=== PATIENT | female | born 1950 | race Caucasian/White ===

== ENCOUNTER → 2017-03-07 | Outpatient (CLI) | payer MEDICARE, OTHER ==
--- NOTE | 2017-03-08 07:52 | BD ---
EXAMINATION TYPE: MG DEXA axial skeleton. DATE OF EXAM: 03/07/2017 4:44 PM COMPARISON: DEXA bone scan November 10, 2012. CLINICAL HISTORY: Postmenopausal female Height: 67 Weight: 149.5 FRAX RISK QUESTIONS: Alcohol (3 or more units per day): no Family History (Parent hip fracture): no Glucocorticoids (More than 3mos): no (Ex: prednisone, prednisolone, methylprednisolone, dexamethasone, and hydrocortisone). History of Fracture in Adulthood: yes Secondary Osteoporosis: 1. Type 1 Diabetes: no 2. Hyperthyroidism: no 3. Menopause before 45: no 4. Malnutrition: no 5. Chronic liver disease: no Rheumatoid Arthritis: no Current Tobacco Use: no RISK FACTORS HISTORY OF: Hip Fracture (Right/Left): no Spine Fracture: no History of Wrist Fracture: no Surgery to Spine/Hip(right/left)/Wrist (right/left): no Family History of Osteoporosis: yes Active: yes Diet low in dairy products/other sources of calcium: no Postmenopausal woman: Lost more than 2 inches in height since high school: no Frequent falls: no Poor Health: no Adrenal Insufficiency: no MEDICATIONS: Zestril EXAM MEASUREMENTS: Bone mineral densitometry was performed using the [employer] System. Bone mineral density as measured about the Lumbar spine is: ----- L1-L4(G/cm2): 1.100 T Score Values are as follows: ----- L2: -1.4 ----- L3: -0.4 ----- L4: 0.2 ----- L1-L4: -0.7 Bone mineral density has: increased 0.5 % since study of: 11.10.2012 Bone mineral density about the R hip (g/cm2): 0.927 Bone mineral density about the L hip (g/cm2): 0.845 T Score values are as follows: -----R Neck: -0.8 -----L Neck: -1.4 -----R Intertrochanter: -0.6 -----L Intertrochanter: -1.0 Bone mineral density has: decreased-0.8 % since study of: 11.10.2012 IMPRESSION: Osteopenia (T Score between -2.5 and -1 as noted by T score values remains present in the low back co nsecutive levels and in the left hip. Bone density fairly stable from prior study. There is slightly increased risk of fracture and the patient may be considered for treatment. Re-Screen 1-2 years. NOTE: T-SCORE=SD OF THE YOUNG ADULT MEAN.
== END | disposition home or self-care (01) ==
LOC: RADBDWWP 16:25
PROVIDERS: ATTEND Obstetrics & Gynecology
DX: M85.852 Other specified disorders of bone density and structure, left thigh (principal); M85.88 Other specified disorders of bone density and structure, other site
CPT/HCPCS: 77080

== ENCOUNTER 2017-05-28 07:20 | Day surgery (SDC) | payer MEDICARE, OTHER ==
[2017-05-23 11:05] VITALS: BMI 23.1
[~2017-05-28 07:20] MED LIST: LACTATED RINGERS 1,000 ML IV SCH
[2017-05-28 07:34] VITALS: RESP 18; TEMP 97.8
[2017-05-28] MEDS ORDERED: LIDOCAINE 1% 20 ML VIAL (10MG/ML) FOR IV START INTRADERMA ONE (07:34)
[2017-05-28] MEDS ORDERED: PROPOFOL 10 MG/ML 20 ML VIAL IV ONE (08:29)
[2017-05-28] MEDS ORDERED: LIDOCAINE 1% INJ 10MG/ML (20 ML MDV) ONE (08:29)
--- NOTE | 2017-05-28 08:43 | P.OP ---
Date of Procedure: 05/28/17 Preoperative Diagnosis: Red blood per rectum Postoperative Diagnosis: Internal hemorrhoids, tortuous redundant sigmoid colon Procedure(s) Performed: Colonoscopy Implants: Anesthesia: MAC Surgeon: Crystal Swenson Estimated Blood Loss (ml): 0 IV fluids (ml): 550 Pathology: none sent Condition: stable Disposition: PACU Indications for Procedure: Red blood per rectum Operative Findings: Tortuous redundant sigmoid colon, internal hemorrhoids Description of Procedure: Patient was taken to the endoscopy suite and following sedation rectal exam was performed patient was noted to have adequate sphincter tone no masses. Colonoscope was passed through the anus into the rectum. Was passed up into the sigmoid colon which was very tortuous and redundant. Was passed to the splenic flexure transverse colon hepatic flexure right colon down to the area of the cecum. Circumferential observation of the mucosa did not reveal any lesions of concern in the cecum or right colon. No lesions of concern were noted in the transverse colon. No lesions of concern in the left colon or sigmoid colon. As the scope was brought down to the rectum it was retroflexed and internal hemorrhoids were identified. This appeared to be engorged and friable. No other lesions of concern identified. Approximately 6 minutes were taken to withdraw the scope from the cecum to the rectum. Impression/plan: 1. Tortuous redundant sigmoid colon 2. Internal hemorrhoids Plan: 1. Conservative management 2. Repeat scope 7-10 years
--- NOTE | 2017-05-28 08:44 | P.DS ---
Providers Attending physician: Crystal Swenson Primary care physician: Gavino Finney Plan - Discharge Summary New Discharge Prescriptions: No Action Aspirin EC [Ecotrin Low Dose] 81 mg PO DAILY Zinc 50 mg PO DAILY Cummings-3 Fatty Acids/Fish Oil [Fish Oil 1,000 mg Softgel] 1 each PO DAILY Multivitamins, Thera [Multivitamin (formulary)] 1 each PO DAILY Lutein 10 mg PO DAILY Lisinopril [Zestril] 5 mg PO DAILY Calcium Carbonate [Calcium] 1,200 mg PO DAILY Discharge Medication List Aspirin EC [Ecotrin Low Dose] 81 mg PO DAILY 05/23/17 [History] Calcium Carbonate [Calcium] 1,200 mg PO DAILY 05/23/17 [History] Lisinopril [Zestril] 5 mg PO DAILY 05/23/17 [History] Lutein 10 mg PO DAILY 05/23/17 [History] Multivitamins, Thera [Multivitamin (formulary)] 1 each PO DAILY 05/23/17 [ History] Cummings-3 Fatty Acids/Fish Oil [Fish Oil 1,000 mg Softgel] 1 each PO DAILY [History] Zinc 50 mg PO DAILY 05/23/17 [History] Follow up Appointment(s)/Referral(s): Crystal Swenson MD [STAFF PHYSICIAN] - As Needed Discharge Disposition: HOME SELF-CARE
[2017-05-28 09:08] VITALS: BP 133/87; PULSE 65
== END 2017-05-28 09:31 | disposition home or self-care (01) ==
LOC: ORWHC2ENDO 07:20
PROVIDERS: ATTEND Surgery
DX: K63.89 Other specified diseases of intestine (principal); K64.8 Other hemorrhoids; Z79.899 Other long term (current) drug therapy
CPT/HCPCS: 45378; J2001; J2704

== ENCOUNTER 2017-08-13 14:41 | Emergency (ER) | payer MEDICARE, OTHER ==
[2017-08-13 15:36] LABS: Basophils % (A) 0 %; CH 30.6; CHCM 33.9; Eosinophils # (A) 0.1 k/uL (0-0.7); Eosinophils % (A) 3 %; HCT 38.6 % (34.0-46.0); HDW 2.47; HGB 13.2 gm/dL (11.4-16.0); Luc # (Auto) 0.09; Luc % (Auto) 3; Lymphocytes # (A) 1.2 k/uL (1.0-4.8); Lymphocytes % (A) 32 %; MCH 30.9 pg (25.0-35.0); MCHC 34.1 g/dL (31.0-37.0); MCV 90.6 fL (80.0-100.0); Mean Platelet Volume 6.8; Monocytes # (A) 0.2 k/uL (0-1.0); Monocytes % (A) 5 %; Neutrophils # (A) 2.1 k/uL (1.3-7.7); Neutrophils % (A) 57 %; RBC 4.26 m/uL (3.80-5.40); RDW 12.2 % (11.5-15.5); WBC 3.7 k/uL (3.8-10.6); WBC (Perox) 3.79
[2017-08-13 15:47] LABS: Amylase <30 U/L (30-110)
--- NOTE | 2017-08-13 15:47 | XR ---
EXAMINATION TYPE: XR KUB DATE OF EXAM: 08/13/2017 3:42 PM CLINICAL HISTORY: Right-sided abdominal pain and blood in stool. TECHNIQUE: Two Upright KUB images of the abdomen are obtained. COMPARISON: None. FINDINGS: Scattered gas is seen in non-distended stomach and small bowel loops. Gas and fecal materia l is seen in non-distended colon. Cholecystectomy clips are present. Heart size is enlarged. Lung bas es are clear. No pneumoperitoneum is seen. No suspicious calcifications are noted. There is moderate joint space loss in both hips. There is mild to moderate spurring in the visualized spine. IMPRESSION: Overall nonobstructive bowel gas pattern.
[2017-08-13 15:48] LABS: ALT 23 U/L (9-52); AST 25 U/L (14-36); Alkaline Phosphatase 73 U/L (38-126); Anion Gap 9 mmol/L; Blood Urea Nitrogen 26 mg/dL (7-17); Calcium 9.3 mg/dL (8.4-10.2); Carbon Dioxide 24 mmol/L (22-30); Chloride 107 mmol/L (98-107); Glucose 103 mg/dL (74-99); Non-African American GFR(MDRD) >60 (>60 ml/min/1.73 sqM); Potassium 4.1 mmol/L (3.5-5.1); Sodium 140 mmol/L (137-145); Total Bilirubin 0.3 mg/dL (0.2-1.3); Total Protein 6.6 g/dL (6.3-8.2)
[2017-08-13 15:52] LABS: Appearance,Urine Clear (Clear); Bilirubin,Urine Negative (Negative); Glucose,Urine (UA) Negative (Negative); Ketones,Urine Negative (Negative); Leukocyte Esterase,Urine Negative (Negative); Nitrite,Urine Negative (Negative); Protein,Urine Negative (Negative); Specific Gravity,Urine 1.014 (1.001-1.035); UA Billing (MACRO vs. MICRO) CHEM; Urobilinogen,Urine <2.0 mg/dL (<2.0)
--- NOTE | 2017-08-13 16:02 | ED ---
General Adult HPI - General Chief complaint: Abdominal Pain Stated complaint: rt abdominal and flank pain Time Seen by Provider: 08/13/17 14:53 Source: patient Mode of arrival: ambulatory Limitations: no limitations - History of Present Illness Initial comments: This is a 67-year-old female who presents to emergency department today with chief complaint of abdominal pain. Prior to arrival, patient reports an hour- long episode of constant, sharp right lower quadrant abdominal pain with radiation to right flank. She states that over the course of the hour the pain increased in severity. Patient reports a history of bladder prolapse which she states has been more prominent today than usual. She initially believed the pain was related to this however, the pain did not decrease when she manually put bladder back in place. She called her son who transported her to the emergency department. Upon taking history and physical exam patient is no longer in pain and feels well. Denies fever, chills, chest pain, shortness of breath, nausea, vomiting, dysuria, hematuria, numbess, tingling, headache or vision changes. - Related Data Home Medications Medication Instructions Recorded Confirmed Aspirin EC [Ecotrin Low Dose] 81 mg PO DAILY 05/23/17 08/13/17 Calcium Carbonate [Calcium] 1,200 mg PO DAILY 05/23/17 08/13/17 Lisinopril [Zestril] 5 mg PO DAILY 05/23/17 08/13/17 Lutein 10 mg PO DAILY 05/23/17 08/13/17 Multivitamins, Thera [Multivitamin 1 tab PO DAILY 05/23/17 08/13/17 (formulary)] Chardon-3 Fatty Acids/Fish Oil [Fish 1 cap PO DAILY 05/23/17 08/13/17 Oil 1,000 mg Softgel] Zinc 50 mg PO DAILY 05/23/17 08/13/17 Allergies Allergy/AdvReac Type Severity Reaction Status Date / Time No Known Allergies Allergy Verified 08/13/17 15:14 Review of Systems ROS Statement: Those systems with pertinent positive or pertinent negative responses have been documented in the HPI. ROS Other: All systems not noted in ROS Statement are negative. Past Medical History Past Medical History: Hypertension Additional Past Medical History / Comment(s): recent episodes of blood in stool History of Any Multi-Drug Resistant Organisms: None Reported Past Surgical History: Cholecystectomy, Hernia Repair, Orthopedic Surgery, Tonsillectomy Additional Past Surgical History / Comment(s): SINUS. RT KNEE SCOPE. COLONOSCOPY Past Anesthesia/Blood Transfusion Reactions: No Reported Reaction Past Psychological History: No Psychological Hx Reported Smoking Status: Never smoker Past Alcohol Use History: None Reported Past Drug Use History: None Reported - Past Family History Mother Family Medical History: Cancer General Exam - General Exam Comments Initial Comments: General: Awake and alert, well-developed; in no apparent distress. Patient's son is at bedside. HEENT: Head atraumatic, normocephalic. Pupils are equal, round and reactive to light. Extraocular movements intact. Neck: Supple. Normal ROM. Trachea midline. Cardiovascular: Regular rate and rhythm. No murmurs, rubs or gallops. Chest symmetrical. Respiratory: Lungs clear to auscultation bilaterally. No wheezes, rales or rhonchi. Normal respiratory efffort with no use of accessory muscles. Abdomen: Soft, non-tender, non-distended. No rigidity, rebound or guarding. Normal bowel sounds in all 4 quadrants. No CVA tenderness. Musculoskeletal: Normal ROM, no tenderness, no pedal edema. Pulses 2+ equal and palpable bilaterally. Skin: Brenda, warm and dry without rashes or lesions. Neurological: Alert and oriented x3. CN II-XII grossly intact. Speech is fluent and answers are appropriate. No focal neuro deficits. Psychiatric: Normal mood and affect. No overt signs of depression or anxiety noted. Limitations: no limitations Course Vital Signs 08/13/17 14:51 Temperature 97.5 F L Pulse Rate 85 Respiratory 16 Rate Blood Pressure 136/90 O2 Sat by Pulse 99 Oximetry Medical Decision Making - Medical Decision Making Patient is doing well at this time is in no apparent distress. This case was reviewed with attending physician, Dr. Jacobson. Initial studies were all unremarkable. KUB showed no acute abnormalities. Patient will be discharged home with recommendation to follow up with primary care provider and return to ED if symptoms worsen or any concerns arise. - Lab Data Result diagrams: 08/13/17 15:21 08/13/17 15:21 Lab Results 08/13/17 08/13/17 08/13/17 Range/Units 15:21 15:21 15:21 WBC 3.7 L (3.8-10.6) k/uL RBC 4.26 (3.80-5.40) m/uL Hgb 13.2 (11.4-16.0) gm/dL Hct 38.6 (34.0-46.0) % MCV 90.6 (80.0-100.0) fL MCH 30.9 (25.0-35.0) pg MCHC 34.1 (31.0-37.0) g/dL RDW 12.2 (11.5-15.5) % Plt Count 244 (150-450) k/uL Neutrophils % 57 % Lymphocytes % 32 % Monocytes % 5 % Eosinophils % 3 % Basophils % 0 % Neutrophils # 2.1 (1.3-7.7) k/uL Lymphocytes # 1.2 (1.0-4.8) k/uL Monocytes # 0.2 (0-1.0) k/uL Eosinophils # 0.1 (0-0.7) k/uL Basophils # 0.0 (0-0.2) k/uL Sodium 140 (137-145) mmol/L Potassium 4.1 (3.5-5.1) mmol/L Chloride 107 (98-107) mmol/L Carbon Dioxide 24 (22-30) mmol/L Anion Gap 9 mmol/L BUN 26 H (7-17) mg/dL Creatinine 0.75 (0.52-1.04) mg/dL Est GFR (MDRD) Af Amer >60 (>60 ml/min/1.73 sqM) Est GFR (MDRD) Non-Af >60 (>60 ml/min/1.73 sqM) Glucose 103 H (74-99) mg/dL Calcium 9.3 (8.4-10.2) mg/dL Total Bilirubin 0.3 (0.2-1.3) mg/dL AST 25 (14-36) U/L ALT 23 (9-52) U/L Alkaline Phosphatase 73 (38-126) U/L Total Protein 6.6 (6.3-8.2) g/dL Albumin 4.0 (3.5-5.0) g/dL Amylase <30 L (30-110) U/L Lipase 141 (23-300) U/L Urine Color Urine Appearance (Clear) Urine pH (5.0-8.0) Ur Specific Isle (1.001-1.035) Urine Protein (Negative) Urine Glucose (UA) (Negative) Urine Ketones (Negative) Urine Blood (Negative) Urine Nitrite (Negative) Urine Bilirubin (Negative) Urine Urobilinogen (<2.0) mg/dL Ur Leukocyte Esterase (Negative) 08/13/17 Range/Units 15:34 WBC (3.8-10.6) k/uL RBC (3.80-5.40) m/uL Hgb (11.4-16.0) gm/dL Hct (34.0-46.0) % MCV (80.0-100.0) fL MCH (25.0-35.0) pg MCHC (31.0-37.0) g/dL RDW (11.5-15.5) % Plt Count (150-450) k/uL Neutrophils % % Lymphocytes % % Monocytes % % Eosinophils % % Basophils % % Neutrophils # (1.3-7.7) k/uL Lymphocytes # (1.0-4.8) k/uL Monocytes # (0-1.0) k/uL Eosinophils # (0-0.7) k/uL Basophils # (0-0.2) k/uL Sodium (137-145) mmol/L Potassium (3.5-5.1) mmol/L Chloride (98-107) mmol/L Carbon Dioxide (22-30) mmol/L Anion Gap mmol/L BUN (7-17) mg/dL Creatinine (0.52-1.04) mg/dL Est GFR (MDRD) Af Amer (>60 ml/min/1.73 sqM) Est GFR (MDRD) Non-Af (>60 ml/min/1.73 sqM) Glucose (74-99) mg/dL Calcium (8.4-10.2) mg/dL Total Bilirubin (0.2-1.3) mg/dL AST (14-36) U/L ALT (9-52) U/L Alkaline Phosphatase (38-126) U/L Total Protein (6.3-8.2) g/dL Albumin (3.5-5.0) g/dL Amylase (30-110) U/L Lipase (23-300) U/L Urine Color Light Yellow Urine Appearance Clear (Clear) Urine pH 7.0 (5.0-8.0) Ur Specific [place] 1.014 (1.001-1.035) Urine Protein Negative (Negative) Urine Glucose (UA) Negative (Negative) Urine Ketones Negative (Negative) Urine Blood Negative (Negative) Urine Nitrite Negative (Negative) Urine Bilirubin Negative (Negative) Urine Urobilinogen <2.0 (<2.0) mg/dL Ur Leukocyte Esterase Negative (Negative) Disposition Clinical Impression: Abdominal pain Disposition: HOME SELF-CARE Condition: Good Instructions: Abdominal Pain (ED) Additional Instructions: Please follow up with PCP within 1-2 days. Return to ED if symptoms should worsen or any concerns arise. Referrals: Gavino Finney MD [Primary Care Provider] - 1-2 days Time of Disposition: 16:04 Decision Time: 16:04
[2017-08-13 16:18] VITALS: BP 156/90; PULSE 69; RESP 18; TEMP 97.2
== END 2017-08-13 16:18 | disposition home or self-care (01) ==
LOC: EC 14:41
DX: R10.31 Right lower quadrant pain (principal); I10 Essential (primary) hypertension; Z79.82 Long term (current) use of aspirin; Z79.899 Other long term (current) drug therapy; Z90.49 Acquired absence of other specified parts of digestive tract
CPT/HCPCS: 36415; 74000; 80053; 81003; 82150; 83690; 85025; 99284

== ENCOUNTER → 2017-11-20 | Outpatient (CLI) | payer MEDICARE, OTHER ==
--- NOTE | 2017-11-20 17:10 | US ---
EXAMINATION TYPE: US pelvic complete DATE OF EXAM: 11/20/2017 COMPARISON: NONE CLINICAL HISTORY: N81.4 Uterine prolapse. Uterine prolapse, 6, para 5, miscarriage 1, history of tubal ligation TECHNIQUE: Transvaginal (TV) and Transabdominal (TA) Date of LMP: 10+ years ago EXAM MEASUREMENTS: Uterus: 6.9 x 4.6 x 2.4 cm Endometrial Stripe: 0.3 cm Right Ovary: not seen Left Ovary: not seen 1. Uterus: anteverted, heterogeneous 2. Endometrium: wnl 3. Right Ovary: not seen due to overlying bowel 4. Left Ovary: not seen due to overlying bowel 5. Bilateral Adnexa: wnl 6. Posterior cul-de-sac: 8.4 x 6.1 x 8.0cm cystic non vascular structure posterior to uterus, possib le ovarian cyst vs. other IMPRESSION: There is large cystic lesion in pelvic cul-de-sac, this is presumed ovarian in origin, th is is abnormal finding in postmenopausal female. Lesion measures at least 8.4 cm on long axis. It is fairly anechoic without nodularity. Due to size it cannot be completely characterized on ultrasound. Neoplasm cannot be excluded. Gynecology oncology referral and lab workup advised. Consider pelvic MRI to further evaluate and characterize lesion.
== END | disposition home or self-care (01) ==
LOC: RADUSWWP 16:12
PROVIDERS: ATTEND Obstetrics & Gynecology
DX: N83.8 Other noninflammatory disorders of ovary, fallopian tube and broad ligament (principal)
CPT/HCPCS: 76830; 76856

== ENCOUNTER → 2017-12-06 | Outpatient (CLI) | payer MEDICARE, OTHER ==
[2017-12-06 14:18] LABS: Blood Urea Nitrogen 24 mg/dL (7-17)
--- NOTE | 2017-12-06 15:55 | CT ---
EXAMINATION TYPE: CT pelvis w con DATE OF EXAM: 12/06/2017 COMPARISON: Pelvic ultrasound dated 11/20/2017. HISTORY: Pelvic pain CT DLP: 663 mGycm Automated exposure control for dose reduction was used. CONTRAST: Performed with IV Contrast, patient injected with 100 mL of Omnipaque 300. FINDINGS: There is a 8.3 x 7.5 x 5.9 cm left adnexal cystic mass posterior to the uterus. This is seen adjacent to the gonadal vein. No residual ovarian tissue is identified. No internal septations or mural nodul arity are identified. This mass displaces loops of small bowel as well as the sigmoid colon. No adjac ent adenopathy is identified. No greater than 1 cm short axis lymph nodes are seen within the pelvis. There is no internal enhancement with the mass on the delayed images. Visualized portions of the liver are unremarkable. Gallbladder is surgically absent. Visualized porti ons of the spleen and pancreas are also unremarkable. Mild pancreatic ductal prominence without dilat ation is noted. Bowel is nondilated without evidence of obstruction. Kidneys enhance symmetrically ot her than an exophytic right renal lesion that does not fit criteria for simple cyst measuring 1.7 cm emanating laterally from the mid pole. Right ovary demonstrates a small follicle and is otherwise unr emarkable. Mild degenerative changes are appreciated of the lumbosacral spine as visualized. No suspi cious osseous lesions are seen. IMPRESSION: 1. 8.3 CM LEFT ADNEXAL CYSTIC MASS. CONSIDERATIONS ARE FOR BENIGN AND MALIGNANT OVARIAN NEOPLASM SUCH SEROUS/MUCINOUS CYSTADENOMA AND CYSTADENOCARCINOMA. CONSULTATION WITH GYNECOLOGY ONCOLOGY IS AGAI N RECOMMENDED. PELVIC MR COULD FURTHER CHARACTERIZE ANY INTERNAL COMPLEXITY OR ENHANCEMENT. NO CHRISTMAS BELL RINGER AL COMPLEXITY SEEN ON TODAY'S EXAMINATION. 2. NO ADENOPATHY SEEN WITHIN THE PELVIS. 3. RIGHT RENAL LESION THAT DOES NOT FIT CRITERIA FOR A RENAL CYST ON THIS EXAMINATION. RENAL ULTRASOU ND OR THREE-PHASE ABDOMINAL CT (RENAL MASS PROTOCOL) COULD BE PERFORMED THIS COULD REPRESENT A CADY AL NEOPLASM OR CYST WITH PSEUDOENHANCEMENT.
== END | disposition home or self-care (01) ==
LOC: RADCTMAIN 13:30
PROVIDERS: ATTEND Obstetrics & Gynecology
DX: N83.8 Other noninflammatory disorders of ovary, fallopian tube and broad ligament (principal); N28.9 Disorder of kidney and ureter, unspecified; N83.209 Unspecified ovarian cyst, unspecified side
CPT/HCPCS: 86304; 82565; 84520; 72193; Q9967

== ENCOUNTER → 2018-01-01 | Outpatient (CLI) | payer MEDICARE, OTHER ==
--- NOTE | 2018-01-01 11:03 | XR ---
EXAMINATION TYPE: XR chest 2V DATE OF EXAM: 01/01/2018 COMPARISON: NONE HISTORY: Cough and congestion. TECHNIQUE: Frontal and lateral views of the chest are obtained. FINDINGS: There is no focal air space opacity, pleural effusion, or pneumothorax seen. The cardiac silhouette size is within normal limits. The osseous structures are intact. IMPRESSION: No acute pulmonary process.
== END ==
LOC: RADXRMAIN 10:35
PROVIDERS: ATTEND Family Medicine
DX: B34.9 Viral infection, unspecified (principal)
CPT/HCPCS: 71046

== ENCOUNTER → 2018-12-24 | Outpatient (CLI) | payer MEDICARE, OTHER ==
--- NOTE | 2018-12-25 11:30 | MM ---
Reason for exam: screening (asymptomatic). Last mammogram was performed 1 year ago. History: Patient is postmenopausal. Family history of breast cancer in mother and breast cancer in aunt. Physical Findings: A clinical breast exam by your physician is recommended on an annual basis and results should be correlated with mammographic findings. MG 3D Screening Mammo W/Cad Bilateral CC and MLO view(s) were taken. Prior study comparison: December 12, 2017, bilateral MG 3d screening mammo w/cad. October 05, 2016, bilateral MG screening mammo w CAD. The breast tissue is heterogeneously dense. This may lower the sensitivity of mammography. Benign appearing vascular bilateral calcifications. No suspicious abnormality. No significant changes when compared with prior studies. ASSESSMENT: Benign, BI-RAD 2 RECOMMENDATION: Routine screening mammogram of both breasts in 1 year.
== END | disposition home or self-care (01) ==
LOC: RADMAMWWP 09:19
PROVIDERS: ATTEND Obstetrics & Gynecology
DX: Z12.31 Encounter for screening mammogram for malignant neoplasm of breast (principal)
CPT/HCPCS: 77063; 77067

== ENCOUNTER → 2019-07-01 | Outpatient (CLI) | payer MEDICARE, OTHER ==
--- NOTE | 2019-07-01 11:13 | XR ---
EXAMINATION TYPE: XR humerus LT DATE OF EXAM: 07/01/2019 COMPARISON: None HISTORY: Multiple myeloma TECHNIQUE: 2 views left humerus FINDINGS: No suspicious lytic lesions are evident. Joint spaces appear preserved. IMPRESSION: 1. Normal left humerus.
--- NOTE | 2019-07-01 11:14 | XR ---
EXAMINATION TYPE: XR shoulder limited LT DATE OF EXAM: 07/01/2019 COMPARISON: NONE HISTORY: Pain, history of multiple myeloma. TECHNIQUE: Shoulder examined in 3 projections FINDINGS: The humeral head articulates with the glenoid. The acromioclavicular junction has some mild hypertrophy. No acute fractures or dislocations are evident. No suspicious lytic lesions are evident. A follow up study can be performed 7-10 days from acute trauma for continued pain. IMPRESSION: 1. No acute abnormality left shoulder
== END | disposition home or self-care (01) ==
LOC: RADXRMAIN 07:35
PROVIDERS: ATTEND Internal Medicine Hematology & Oncology
DX: C90.00 Multiple myeloma not having achieved remission (principal); D47.2 Monoclonal gammopathy; Z71.89 Other specified counseling

== ENCOUNTER → 2019-07-06 | Outpatient (CLI) | payer MEDICARE, OTHER ==
--- NOTE | 2019-07-06 09:57 | BD ---
EXAMINATION TYPE: Axial Bone Density DATE OF EXAM: 07/06/2019 COMPARISON: 2017 CLINICAL HISTORY: osteopenia Height: 5'7 Weight: 137 FRAX RISK QUESTIONS: History of Fracture in Adulthood: y Secondary Osteoporosis: RISK FACTORS HISTORY OF: Family History of Osteoporosis: y Postmenopausal woman: y MEDICATIONS: Additional Medications: high blood pressure Additional History: EXAM MEASUREMENTS: Bone mineral densitometry was performed using the [employer]. Bone mineral density as measured about the Lumbar spine is: ----- L1-L4(G/cm2): 1.067 T Score Values are as follows: ----- L2: -1.8 ----- L3: -0.8 ----- L4: 0.0 ----- L1-L4: -0.9 Bone mineral density has: Decreased -3.5% since study of: 03/07/2017 Bone mineral density about the R hip (g/cm2): 0.907 Bone mineral density about the L hip (g/cm2): 0.806 T Score values are as follows: -----R Neck: -0.9 -----L Neck: -1.7 -----R Total: -0.5 -----L Total: -1.0 Bone mineral density has: Decreased -2.9% since study of: 03/07/2017 IMPRESSION: Osteopenia (T Score between -2.5 and -1). There is slightly increased risk of fracture and the patient may be considered for treatment. Re-Screen 2-5 years. NOTE: T-SCORE=SD OF THE YOUNG ADULT MEAN.
== END | disposition home or self-care (01) ==
LOC: RADBDWWP 07:42
PROVIDERS: ATTEND Obstetrics & Gynecology
DX: M85.88 Other specified disorders of bone density and structure, other site (principal)
CPT/HCPCS: 77080

== ENCOUNTER → 2021-02-22 | Outpatient (CLI) | payer MEDICARE, OTHER ==
--- NOTE | 2021-02-23 10:51 | MM ---
Reason for exam: screening (asymptomatic). Last mammogram was performed 1 year and 2 months ago. History: Patient is postmenopausal and history of other cancer. Family history of breast cancer in mother and breast cancer in aunt. Physical Findings: A clinical breast exam by your physician is recommended on an annual basis and results should be correlated with mammographic findings. MG 3D Screening Mammo W/Cad Bilateral CC and MLO view(s) were taken. Prior study comparison: December 30, 2019, bilateral MG 3d screening mammo w/cad. December 24, 2018, bilateral MG 3d screening mammo w/cad. There are scattered fibroglandular densities. There are benign appearing round vascular calcifications bilaterally. There is no discrete abnormality. ASSESSMENT: Benign, BI-RAD 2 RECOMMENDATION: Routine screening mammogram of both breasts in 1 year.
== END | disposition home or self-care (01) ==
LOC: RADMAMWWP 09:27
PROVIDERS: ATTEND Obstetrics & Gynecology
DX: Z12.31 Encounter for screening mammogram for malignant neoplasm of breast (principal); Z78.0 Asymptomatic menopausal state; Z80.3 Family history of malignant neoplasm of breast
CPT/HCPCS: 77063; 77067

== ENCOUNTER → 2021-08-31 | Outpatient (CLI) | payer MEDICARE, OTHER ==
--- NOTE | 2021-08-31 11:44 | XR ---
EXAMINATION TYPE: XR chest 2V DATE OF EXAM: 08/31/2021 COMPARISON: 01/01/2018 HISTORY: Shortness of breath TECHNIQUE: Frontal and lateral views of the chest are obtained. FINDINGS: Scattered senescent parenchymal changes noted. Hyperinflation compatible with COPD. No evidence for infiltrate. No evidence for atelectasis. Heart size is stable. Mediastinal structures are stable and grossly unremarkable. No evidence for hilar prominence. Degenerative changes dorsal spine. IMPRESSION: 1. No evidence for acute pulmonary disease.
[2021-08-31 16:27] LABS: Basophils # (A) 0.01 X 10*3/uL (0.00-0.10); Basophils % (A) 0.3 %; Eosinophils # (A) 0.08 X 10*3/uL (0.04-0.35); Eosinophils % (A) 2.3 %; HCT 40.4 % (37.2-46.3); HGB 12.9 g/dL (12.0-15.0); Lymphocytes # (A) 0.97 X 10*3/uL (0.90-5.00); Lymphocytes % (A) 28.4 %; MCH 29.9 pg (27.0-32.0); MCHC 31.9 g/dL (32.0-37.0); MCV 93.7 fL (80.0-97.0); Mean Platelet Volume 10.2 fL (9.5-12.2); Monocytes # (A) 0.36 X 10*3/uL (0.20-1.00); Monocytes % (A) 10.6 %; Neutrophils # (A) 1.98 X 10*3/uL (1.80-7.70); Neutrophils % (A) 58.1 %; Platelet Count 212 X 10*3/uL (140-440); RBC 4.31 X 10*6/uL (4.10-5.20); RDW 12.2 % (11.5-14.5); WBC 3.41 X 10*3/uL (4.50-10.00)
[2021-08-31 19:29] LABS: African American GFR (CKD) 87.2 (60.0-200.0); Albumin 4.5 g/dL (3.8-4.9); Albumin/Globulin Ratio 2.05 (1.60-3.17); Anion Gap 12.1 mmol/L (4.00-12.00); BUN/Creat Ratio 21.5 Ratio (12.00-20.00); Blood Urea Nitrogen 17.2 mg/dL (9.0-27.0); Calcium 9.5 mg/dL (8.7-10.3); Carbon Dioxide 23.9 mmol/L (21.6-31.8); Globulin 2.2 g/dL (1.6-3.3); Magnesium 2.1 mg/dL (1.5-2.4); Non-African American GFR(CKD) 75.2 (60.0-200.0); Potassium 4.8 mmol/L (3.5-5.5); Total Bilirubin 0.5 mg/dL (0.30-1.20); Total Protein 6.7 g/dL (6.2-8.2)
== END | disposition home or self-care (01) ==
LOC: LABWHC1 10:13
PROVIDERS: ATTEND Family Medicine
DX: I10 Essential (primary) hypertension (principal); R00.2 Palpitations; R06.02 Shortness of breath
CPT/HCPCS: 36415; 71046; 80053; 83735; 85025; 93005

== ENCOUNTER → 2021-09-14 | Outpatient (CLI) | payer MEDICARE, OTHER ==
--- NOTE | 2021-09-15 10:53 | ECHOF ---
Referral Reason:R00.2 Palpitations; I10 Hypertension MEASUREMENTS -------- HEIGHT: 170.2 cm WEIGHT: 63.5 kg BP: 128/68 RVIDd: 3.1 cm (< 3.3) IVSd: 0.8 cm (0.6 - 1.1) LVIDd: 4.5 cm (3.9 - 5.3) LVPWd: 1.0 cm (0.6 - 1.1) IVSs: 1.4 cm LVIDs: 3.2 cm LVPWs: 1.6 cm LA Diam: 3.2 cm (2.7 - 3.8) LAESV Index (A-L): 26.14 ml/m Ao Diam: 3.4 cm (2.0 - 3.7) AV Cusp: 2.2 cm (1.5 - 2.6) MV EXCURSION: 14.664 mm (> 18.000) MV EF SLOPE: 67 mm/s (70 - 150) EPSS: 0.8 cm MV E Reddy: 0.72 m/s MV DecT: 248 ms MV A Reddy: 0.89 m/s MV E/A Ratio: 0.81 RAP: 5.00 mmHg RVSP: 22.74 mmHg FINDINGS -------- Sinus rhythm. This was a technically good study. The left ventricular size is normal. Left ventricular wall thickness is normal. Overall left vent ricular systolic function is mildly impaired with, an EF between 45 - 50 %. The right ventricle is normal in size and function. Normal LA size by volume 22+/-6 ml/m2. The right atrium is normal in size. Interatrial and interventricular septum intact. The aortic valve is trileaflet, and appears structurally normal. No aortic stenosis or regurgitation. There is trace mitral regurgitation. Mild tricuspid regurgitation present. Right ventricular systolic pressure is normal at < 35 mmHg. Trace/mild (physiologic) pulmonic regurgitation. The aortic root size is normal. Normal inferior vena cava with normal inspiratory collapse consistent with estimated right atrial pre ssure of 5 mmHg. There is no pericardial effusion. CONCLUSIONS -------- 1. The left ventricular size is normal. 2. Left ventricular wall thickness is normal. 3. Overall left ventricular systolic function is mildly impaired with, an EF between 45 - 50 %. 4. The aortic valve is trileaflet, and appears structurally normal. No aortic stenosis or regurgitati on. 5. There is trace mitral regurgitation. 6. Mild tricuspid regurgitation present. 7. Trace/mild (physiologic) pulmonic regurgitation. 8. There is no pericardial effusion. INSTRUMENT ASSEMBLER: Vira Horowitz RDCS
== END | disposition home or self-care (01) ==
LOC: RADECHMAIN 12:00
PROVIDERS: ATTEND Family Medicine
DX: I37.1 Nonrheumatic pulmonary valve insufficiency (principal); I10 Essential (primary) hypertension
CPT/HCPCS: 93270; 93306

== ENCOUNTER → 2021-10-02 | Outpatient (CLI) | payer MEDICARE, OTHER ==
--- NOTE | 2021-10-02 10:36 | P.STRESS ---
- Stress Test Note Stress Test Results/Findings: Exam Performed: Exam Date: Reason for Exam: Height: Weight: Protocol: Stage: Duration of Exercise: Resting Heart Rate: Resting Blood Pressure: Maximum Achieved Heart Rate: Maximum Achieved Blood Pressure: 85% PMHR: 100% PMHR: METS: Technologist Comment: Stress Test Results/Findings: Patient underwent exercise stress Cardiolite with a Favian protocol treadmill stress test. Patient exercised into Stage 3 for a total of 9 minutes and 30 seconds reaching a total of 13.0 METS. Patient's maximum heart rate was 155 which represented 100% age-predicted maximum heart rate. Stress EKG findings: At baseline patient's EKG showed normal sinus rhythm, normal axis, occasional PVCs and PACs, no significant ST or T-wave abnormalities. At peak exercise, EKG showed no significant change from baseline. Conclusions: 1. Normal EKG response to exercise without evidence of inducible ischemia. 2. Good exercise capacity. 3. Nuclear portion to be reported separately.
--- NOTE | 2021-10-02 14:27 | NM ---
EXAMINATION TYPE: NM stress cardiolite complete DATE OF EXAM: 10/02/2021 COMPARISON: NONE HISTORY: 71-year-old female R00.2, palpitations TECHNIQUE: After the intravenous administration of 9.3 mCi Tc 99m Sestamibi - Rest images obtained 5 0 minutes post injection. The patient exercised using a ALONSO protocol and 1 minute prior to peak e xercise was injected with 26.6 mCi Tc 99m Sestamibi - Stress images obtained 30 minutes post injectio n. FINDINGS: Targeted heart rate was achieved during performance of the study. Review of stress and rest SPECT chuyita ges demonstrates moderate to large sized area of reversibility along the lateral and inferolateral wa ll. Gated analysis shows limited augmentation in this area. Estimated left ventricular ejection fract ion of 61 %. TID is normal at 0.81. IMPRESSION: Reversibility seen along the lateral and inferolateral chavira. Findings suggest inducible ischemia.
== END | disposition home or self-care (01) ==
LOC: RADNMMAIN 07:58
PROVIDERS: ATTEND Family Medicine
DX: R00.2 Palpitations (principal)
CPT/HCPCS: 93017; 78452; A9500

== ENCOUNTER → 2021-10-03 | Outpatient (CLI) | payer MEDICARE, OTHER ==
[2021-10-03 20:25] LABS: ALT 17 U/L (8-44); Chol/HDL Ratio 2.57 Ratio; LDL Cholesterol,Calculated 96.4 mg/dL (0.0-131.0)
[2021-10-03 20:26] LABS: AST 21 U/L (13-35)
== END | disposition home or self-care (01) ==
LOC: LABPAT 12:03
PROVIDERS: ATTEND Internal Medicine Cardiovascular Disease
DX: E78.2 Mixed hyperlipidemia (principal)
CPT/HCPCS: 36415; 80061; 84450; 84460

== ENCOUNTER → 2021-10-03 | Outpatient (CLI) | payer MEDICARE, OTHER ==
[2021-10-03 13:36] LABS: HCT 40.7 % (34.0-46.0); HGB 13.3 gm/dL (11.4-16.0); MCH 30.4 pg (25.0-35.0); MCHC 32.7 g/dL (31.0-37.0); MCV 93.1 fL (80.0-100.0); Mean Platelet Volume 7.4; Platelet Count 230 k/uL (150-450); RBC 4.37 m/uL (3.80-5.40); WBC 3.4 k/uL (3.8-10.6)
[2021-10-03 13:52] LABS: African American GFR (CKD) >90 (>60 ml/min/1.73 sqM); Anion Gap 7 mmol/L; Blood Urea Nitrogen 21 mg/dL (7-17); Carbon Dioxide 28 mmol/L (22-30); Chloride 104 mmol/L (98-107); Non-African American GFR(CKD) 89 (>60 ml/min/1.73 sqM); Potassium 4.7 mmol/L (3.5-5.1); Sodium 139 mmol/L (137-145)
== END | disposition home or self-care (01) ==
LOC: LABPAT 12:06
PROVIDERS: ATTEND Internal Medicine Cardiovascular Disease
DX: Z01.812 Encounter for preprocedural laboratory examination (principal); R94.39 Abnormal result of other cardiovascular function study
CPT/HCPCS: 80051; 82565; 84520; 85027

== ENCOUNTER 2021-10-11 08:00 | Day surgery (SDC) | payer MEDICARE, OTHER ==
[2021-10-04 13:19] VITALS: BMI 21.9
[~2021-10-11 08:00] MED LIST changes: +ALPRAZolam 0.25 MG TAB PO PRN; +ALPRAZolam 0.5 MG TAB PO PRN; +ASPIRIN 325 MG TAB PO STA; +HEPARIN SODIUM,PORCINE 10,000 UNIT in SODIUM CHLORIDE 0.9% 1,000 ML IRRIGATION PRN; +HEPARIN SODIUM,PORCINE 2,500 UNIT in SODIUM CHLORIDE 0.9% 250 ML IRRIGATION PRN; -LACTATED RINGERS 1,000 ML IV SCH; +NITROGLYCERIN SL TABS 0.4 MG TAB SUBLINGUAL PRN; +SODIUM CHLORIDE 0.9% 1,000 ML in EMPTY BAG 1 BAG IV SCH
[2021-10-11 08:32] VITALS: RESP 18; TEMP 98.4
[2021-10-11] MEDS ORDERED: LIDOCAINE 1% INJ 10MG/ML (20 ML MDV) ONE (08:50)
[2021-10-11] MEDS ORDERED: VERAPAMIL 2.5 MG/ML 2 ML AMP ONE (08:50)
[2021-10-11] MEDS ORDERED: .fentaNYL (PF) 50 MCG/ML AMP IV ONE (09:18)
[2021-10-11] MEDS: MIDAZOLAM 2 MG/2 ML VIAL IV ONE ×2 (09:18→09:25)
[2021-10-11] MEDS ORDERED: LIDOCAINE 1% INJ 10MG/ML (20 ML MDV) SQ ONE (09:18)
[2021-10-11] MEDS ORDERED: VERAPAMIL SYRINGE (5 MG/10 ML) INTRAARTER ONE (09:20)
[2021-10-11] MEDS ORDERED: HEPARIN SODIUM 1,000 UN/ML (10ML VL) ONE (09:22)
[2021-10-11] MEDS ORDERED: HEPARIN SODIUM 1,000 UN/ML (10ML VL) IV ONE (09:25)
[2021-10-11] MEDS ORDERED: IOPAMIDOL-370 125ML BTL INJ ONE (09:36)
[2021-10-11] MEDS ORDERED: RX INFO: IV CONTRAST WAS GIVEN 1 EACH MISC MISCELLANE PRN (09:49)
[2021-10-11] MEDS ORDERED: SODIUM CHLORIDE 0.9% 1,000 ML IV SCH (10:00)
[2021-10-11 13:55] VITALS: PULSE 68
[2021-10-11 14:58] VITALS: BP 120/70
--- NOTE | 2021-10-11 15:38 | CC ---
CARDIAC CATHETERIZATION REPORT INDICATION: Chest pain with abnormal stress test involving inferolateral wall. PROCEDURE NOTE: After obtaining informed consent, left heart catheterization and coronary angiogram were performed via the right radial artery using size 4 Soni catheters. Patient tolerated the procedure well without any obvious immediate complications. Patient received moderate conscious sedation. Total sedation time was 20 minutes. The radial artery access was obtained using Seldinger technique and a wire was used to manipulate the catheter into the brachial artery, and the catheters were exchanged in the ascending aorta. A TR band was placed at the end of the procedure for hemostasis using standard precautions and protocols. A pulse ox of 95% was documented at the end. FINDINGS: HEMODYNAMICS: Left ventricular end-diastolic pressure is 5 mm. There is no significant gradient across the aortic valve. LEFT VENTRICULOGRAM: Left ventriculogram was not performed. ANGIOGRAPHIC DATA: Left main coronary artery. Left main coronary artery appears calcified but is free of significant stenosis. It divides into left anterior descending coronary artery and circumflex coronary artery. LAD shows mild nonobstructive plaque in its mid portion. Its branches are free of significant disease. Circumflex coronary artery is a large dominant vessel and is free of significant disease. Right coronary artery is a small nondominant vessel and is free of significant disease. Patient transiently developed left bundle branch block while engaging the right coronary artery but flipped back into regular rhythm at the end of the procedure. CONCLUSIONS: 1. Mild nonobstructive coronary artery disease. 2. False-positive stress test. PLAN: Patient will be managed with optimal medical therapy and risk factor modification. MMODL / IJN: [id number] /
--- NOTE | 2021-10-11 15:38 | LTR ---
October 11, 2021 To: Dr. Gavino Finney Re: Ernestine Torres (54) Dr. Mancia, I performed cardiac catheterization on Ernestine Torres. A detailed catheterization note is enclosed for your records. In brief, cardiac catheterization did not reveal significant obstructive CAD. Her management is going to be in the form of risk factor modification and optimal medical therapy. Thank you for giving me the privilege of participating in the care of this pleasant lady. Sincerely, Sumeet Burr M.D. MARQUISE / OLGA: [id number] /
== END 2021-10-11 15:05 | disposition home or self-care (01) ==
LOC: CATHCVL 08:00
PROVIDERS: ATTEND Internal Medicine Cardiovascular Disease
DX: R94.39 Abnormal result of other cardiovascular function study (principal); I25.10 Atherosclerotic heart disease of native coronary artery without angina pectoris; I10 Essential (primary) hypertension; Z82.49 Family history of ischemic heart disease and other diseases of the circulatory system; Z20.822 Contact with and (suspected) exposure to COVID-19
CPT/HCPCS: 93458; 87635; C1894; C1769; J2250; J2001; J3010; J1644; Q9967

== ENCOUNTER 2021-11-25 19:04 | Emergency (ER) | payer MEDICARE, OTHER ==
--- NOTE | 2021-11-25 20:59 | ED ---
General Adult HPI - General Chief complaint: Recheck/Abnormal Lab/Rx Stated complaint: lt arm/jaw pain, recent stroke Time Seen by Provider: 11/25/21 20:58 Source: patient Mode of arrival: wheelchair Limitations: no limitations - History of Present Illness Initial comments: Patient presents to the ED with her son for evaluation. Patient states that she has had a cough and nasal congestion for the past 1.5 weeks or so, and she states that for the past 3 or 4 hours she has had chest tightness and left shoulder/neck pain. Patient also reports that her blood pressure was elevated this evening. Patient states that she did have a negative rapid Covid test done today. Patient states that her chest tightness is currently 5/10 in severity. Patient denies taking any aspirin today. Patient denies trauma or injury, fever or chills, headache, focal numbness/weakness/neuro deficit, back pain, pleuritic pain, dyspnea, hemoptysis, palpitations, dizziness, nausea/vomiting/diaphoresis, abdominal pain, dysuria or urinary symptoms, decreased urine output, leg or calf swelling or pain, or any other symptoms or complaints. - Related Data Home Medications Medication Instructions Recorded Confirmed Calcium Carbonate [Calcium] 600 mg PO DAILY 05/23/17 11/21/21 Lutein 10 mg PO DAILY 05/23/17 11/21/21 Multivitamins, Thera [Multivitamin 1 tab PO DAILY 05/23/17 11/21/21 (formulary)] Choteau-3 Fatty Acids/Fish Oil [Fish 1 cap PO DAILY 05/23/17 11/21/21 Oil 1,000 mg Softgel] lisinopriL [Zestril] 10 mg PO DAILY 05/23/17 11/21/21 Cholecalciferol [Vitamin D3 (25 50 mcg PO DAILY #0 10/04/21 11/21/21 Mcg = 1000 Iu)] Cyanocobalamin (Vitamin B-12) 1,000 mcg PO DAILY 10/04/21 11/21/21 [Vitamin B-12] Metoprolol Succinate [Toprol XL] 25 mg PO DAILY 10/11/21 11/21/21 Zolpidem [Ambien] 10 mg PO HS PRN 10/11/21 11/21/21 Aspirin [Vazalore] 325 mg PO DAILY 11/21/21 11/21/21 Atorvastatin [Lipitor] 10 mg PO DAILY 11/21/21 11/21/21 Clopidogrel [Plavix] 75 mg PO DAILY 11/21/21 11/21/21 Allergies Allergy/AdvReac Type Severity Reaction Status Date / Time No Known Allergies Allergy Verified 11/25/21 19:15 Review of Systems ROS Statement: Those systems with pertinent positive or pertinent negative responses have been documented in the HPI. ROS Other: All systems not noted in ROS Statement are negative. Past Medical History Past Medical History: Coronary Artery Disease (CAD), Cancer, Hypertension Additional Past Medical History / Comment(s): chest pain and "high heart rate" 1 month ago, prolapsed bladder, skin cancer, Monoclonal Gammopathy of Undetermined Significance "MGUS"(follows with oncologist) History of Any Multi-Drug Resistant Organisms: None Reported Past Surgical History: Bladder Surgery, Cholecystectomy, Heart Catheterization, Hernia Repair, Hysterectomy, Orthopedic Surgery, Tonsillectomy, Tubal Ligation Additional Past Surgical History / Comment(s): rt knee arthroscopy, sinus surgery, fibroids removed from uterus, renea cataracts, left eye surgery Past Anesthesia/Blood Transfusion Reactions: No Reported Reaction Past Psychological History: Anxiety Smoking Status: Never smoker Past Alcohol Use History: None Reported Past Drug Use History: None Reported - Past Family History Mother Family Medical History: Cancer General Exam Limitations: no limitations General appearance: alert, in no apparent distress Head exam: Present: atraumatic, normocephalic Eye exam: Present: normal appearance, EOMI ENT exam: Present: mucous membranes moist Neck exam: Present: other (Trachea is in midline) Respiratory exam: Present: normal lung sounds bilaterally. Absent: respiratory distress, wheezes, rales, rhonchi, stridor, chest wall tenderness Cardiovascular Exam: Present: regular rate, normal rhythm, normal heart sounds, other (Normal radial pulses bilaterally) GI/Abdominal exam: Present: soft. Absent: distended, tenderness, guarding Extremities exam: Present: other (Negative Homans sign bilaterally). Absent: tenderness, pedal edema, calf tenderness Neurological exam: Present: alert, oriented X3. Absent: motor sensory deficit Psychiatric exam: Present: normal affect, normal mood Skin exam: Present: warm, dry, intact, normal color Course Vital Signs 11/25/21 11/25/21 11/25/21 19:11 21:52 22:05 Temperature 99.5 F Pulse Rate 98 90 91 Respiratory 20 18 18 Rate Blood Pressure 166/87 172/96 154/90 O2 Sat by Pulse 96 98 98 Oximetry - Reevaluation(s) Reevaluation #1: 11/25/21 23:16 Patient states that her chest tightness has currently resolved, and she denies development of any new symptoms while in the ED. Patient continues to deny having any dyspnea. Patient's blood pressure has improved as well. Patient remains alert and breathing comfortably with a normal room air oxygen s aturation. Patient and son are aware the patient's test results, and they both feel comfortable with the patient being discharged home at this time. Patient was counseled about chest pain and COVID-19. Patient was clearly explained return and follow-up instructions, and she was instructed to have a low threshold for return to the emergency department should her symptoms worsen. Patient was also instructed to follow up closely with her primary care provider. Patient feels comfortable this plan. EKG Findings - EKG Comments: EKG Findings:: Normal sinus rhythm, no ectopy, ventricular rate of 87 bpm, normal LA and QRS intervals, normal QT interval, normal axis, no ST or T-wave abnormality Medical Decision Making - Medical Decision Making Patient's EKG is fairly unremarkable. Patient's troponin and d-dimer are within normal limits. Patient's Covid test is positive. Given this, I suspect that the patient's symptoms are likely secondary to COVID-19 infection. Patient is not a candidate for monoclonal antibody treatment at this time given she reports that her symptoms began more than 10 days ago. Will discharge patient home with her son at this time. Patient feels comfortable this plan. - Lab Data Result diagrams: 11/25/21 21:16 11/25/21 21:16 Lab Results 11/25/21 11/25/21 11/25/21 Range/Units 21:16 21:16 21:16 WBC 4.3 (3.8-10.6) k/uL RBC 4.17 (3.80-5.40) m/uL Hgb 12.4 (11.4-16.0) gm/dL Hct 38.2 (34.0-46.0) % MCV 91.5 (80.0-100.0) fL MCH 29.8 (25.0-35.0) pg MCHC 32.6 (31.0-37.0) g/dL RDW 12.1 (11.5-15.5) % Plt Count 192 (150-450) k/uL MPV 7.4 Neutrophils % 75 % Lymphocytes % 12 % Monocytes % 9 % Eosinophils % 2 % Basophils % 0 % Neutrophils # 3.2 (1.3-7.7) k/uL Lymphocytes # 0.5 L (1.0-4.8) k/uL Monocytes # 0.4 (0-1.0) k/uL Eosinophils # 0.1 (0-0.7) k/uL Basophils # 0.0 (0-0.2) k/uL PT 10.2 (9.0-12.0) sec INR 0.9 (<1.2) APTT 24.3 (22.0-30.0) sec D-Dimer 0.54 (<0.60) mg/L FEU Sodium 139 (137-145) mmol/L Potassium 4.1 (3.5-5.1) mmol/L Chloride 103 (98-107) mmol/L Carbon Dioxide 29 (22-30) mmol/L Anion Gap 7 mmol/L BUN 19 H (7-17) mg/dL Creatinine 0.95 (0.52-1.04) mg/dL Est GFR (CKD-EPI)AfAm 71 (>60 ml/min/1.73 sqM) Est GFR (CKD-EPI)NonAf 62 (>60 ml/min/1.73 sqM) Glucose 105 H (74-99) mg/dL Calcium 9.1 (8.4-10.2) mg/dL Magnesium 1.9 (1.6-2.3) mg/dL Total Bilirubin 0.4 (0.2-1.3) mg/dL AST 30 (14-36) U/L ALT 22 (4-34) U/L Alkaline Phosphatase 74 (38-126) U/L Troponin I (0.000-0.034) ng/mL NT-Pro-B Natriuret Pep pg/mL Total Protein 6.5 (6.3-8.2) g/dL Albumin 4.1 (3.5-5.0) g/dL Coronavirus (PCR) (Not Detectd) 11/25/21 11/25/21 11/25/21 Range/Units 21:16 21:16 21:34 WBC (3.8-10.6) k/uL RBC (3.80-5.40) m/uL Hgb (11.4-16.0) gm/dL Hct (34.0-46.0) % MCV (80.0-100.0) fL MCH (25.0-35.0) pg MCHC (31.0-37.0) g/dL RDW (11.5-15.5) % Plt Count (150-450) k/uL MPV Neutrophils % % Lymphocytes % % Monocytes % % Eosinophils % % Basophils % % Neutrophils # (1.3-7.7) k/uL Lymphocytes # (1.0-4.8) k/uL Monocytes # (0-1.0) k/uL Eosinophils # (0-0.7) k/uL Basophils # (0-0.2) k/uL PT (9.0-12.0) sec INR (<1.2) APTT (22.0-30.0) sec D-Dimer (<0.60) mg/L FEU Sodium (137-145) mmol/L Potassium (3.5-5.1) mmol/L Chloride (98-107) mmol/L Carbon Dioxide (22-30) mmol/L Anion Gap mmol/L BUN (7-17) mg/dL Creatinine (0.52-1.04) mg/dL Est GFR (CKD-EPI)AfAm (>60 ml/min/1.73 sqM) Est GFR (CKD-EPI)NonAf (>60 ml/min/1.73 sqM) Glucose (74-99) mg/dL Calcium (8.4-10.2) mg/dL Magnesium (1.6-2.3) mg/dL Total Bilirubin (0.2-1.3) mg/dL AST (14-36) U/L ALT (4-34) U/L Alkaline Phosphatase (38-126) U/L Troponin I <0.012 (0.000-0.034) ng/mL NT-Pro-B Natriuret Pep 365 pg/mL Total Protein (6.3-8.2) g/dL Albumin (3.5-5.0) g/dL Coronavirus (PCR) Detected A (Not Detectd) - Radiology Data Radiology results: report reviewed (Chest x-ray: No acute cardiopulmonary disease/process) Disposition Clinical Impression: Chest pain, COVID-19 Disposition: HOME SELF-CARE Condition: Stable Instructions (If sedation given, give patient instructions): Chest Pain (ED), Coronavirus Disease 2019 (COVID-19) Additional Instructions: Return to the ER immediately should you develop new or worsening pain, shortness of breath, feeling dizzy or faint, or new or worsening symptoms. Follow up c losely with your primary care provider. Is patient prescribed a controlled substance at d/c from ED?: No Referrals: Gavino Finney MD [Primary Care Provider] - 1-2 days Time of Disposition: 23:22
[2021-11-25] MEDS ORDERED: ASPIRIN 81 MG PO STA (21:21)
[2021-11-25] MEDS ORDERED: NITROGLYCERIN SL TABS 0.4 MG TAB SUBLINGUAL STA (21:21)
--- NOTE | 2021-11-25 21:42 | XR ---
EXAMINATION TYPE: XR chest 2V DATE OF EXAM: 11/25/2021 9:15 PM COMPARISON:Chest radiographs from 08/31/2021 CLINICAL INDICATION:Female, 71 years old with history of Chest Pain;, TECHNIQUE: Frontal and lateral views of the chest. FINDINGS: Lungs/Pleura: There is flattening of the diaphragm with increased lucency of the lungs. No evidence o f pneumothorax, pleural effusion or focal consolidation. Pulmonary vascularity: Unremarkable. Heart/mediastinum: Cardiomediastinal silhouette is unremarkable. Musculoskeletal: No acute osseous pathology. IMPRESSION: No acute cardiopulmonary disease/process. COPD changes.
[2021-11-25 21:52] VITALS: RESP 18
[2021-11-25 21:52] LABS: Basophils % (A) 0 %; Eosinophils # (A) 0.1 k/uL (0-0.7); Eosinophils % (A) 2 %; HCT 38.2 % (34.0-46.0); HGB 12.4 gm/dL (11.4-16.0); Lymphocytes # (A) 0.5 k/uL (1.0-4.8); Lymphocytes % (A) 12 %; MCH 29.8 pg (25.0-35.0); MCHC 32.6 g/dL (31.0-37.0); MCV 91.5 fL (80.0-100.0); Mean Platelet Volume 7.4; Monocytes # (A) 0.4 k/uL (0-1.0); Monocytes % (A) 9 %; Neutrophils # (A) 3.2 k/uL (1.3-7.7); Neutrophils % (A) 75 %; Platelet Count 192 k/uL (150-450); RBC 4.17 m/uL (3.80-5.40); RDW 12.1 % (11.5-15.5); WBC 4.3 k/uL (3.8-10.6)
[2021-11-25 22:05] LABS: INR 0.9 (<1.2); Partial Thromboplastin Time 24.3 sec (22.0-30.0); Prothrombin Time 10.2 sec (9.0-12.0)
[2021-11-25 22:08] LABS: Albumin 4.1 g/dL (3.5-5.0); Calcium 9.1 mg/dL (8.4-10.2); Magnesium 1.9 mg/dL (1.6-2.3); Potassium 4.1 mmol/L (3.5-5.1); Total Bilirubin 0.4 mg/dL (0.2-1.3); Total Protein 6.5 g/dL (6.3-8.2)
[2021-11-25 23:55] VITALS: BP 134/81; PULSE 90; TEMP 98.4
== END 2021-11-25 23:55 | disposition home or self-care (01) ==
LOC: EC 19:04
DX: R07.89 Other chest pain (principal); U07.1 COVID-19; I10 Essential (primary) hypertension; I25.10 Atherosclerotic heart disease of native coronary artery without angina pectoris; Z79.899 Other long term (current) drug therapy; Z79.02 Long term (current) use of antithrombotics/antiplatelets; Z79.82 Long term (current) use of aspirin
CPT/HCPCS: 36415; 71046; 80053; 83735; 83880; 84484; 85025; 85379; 85610; 85730; 87635; 93005; 99285

== ENCOUNTER 2021-12-13 08:22 | Day surgery (SDC) | payer MEDICARE, OTHER ==
[2021-12-08 10:52] VITALS: BMI 21.6
[~2021-12-13 08:22] MED LIST changes: -ALPRAZolam 0.25 MG TAB PO PRN; -ALPRAZolam 0.5 MG TAB PO PRN; -ASPIRIN 325 MG TAB PO STA; -HEPARIN SODIUM,PORCINE 10,000 UNIT in SODIUM CHLORIDE 0.9% 1,000 ML IRRIGATION PRN; -HEPARIN SODIUM,PORCINE 2,500 UNIT in SODIUM CHLORIDE 0.9% 250 ML IRRIGATION PRN; +LACTATED RINGERS 1,000 ML IV SCH; +LIDOCAINE 1% (10MG/ML) FOR IV START INTRADERMA PRN; -NITROGLYCERIN SL TABS 0.4 MG TAB SUBLINGUAL PRN; -SODIUM CHLORIDE 0.9% 1,000 ML in EMPTY BAG 1 BAG IV SCH
[2021-12-13] MEDS ORDERED: SODIUM CHLORIDE 0.9% 500 ML 500 ML IV ONE (08:32)
[2021-12-13 08:41] VITALS: TEMP 98.7
[2021-12-13] MEDS ORDERED: fentaNYL (PF) 50 MCG/ML 2 ML AMP ONE (09:29)
[2021-12-13] MEDS ORDERED: BENZOCAINE SPRAY 1 CAN MUCOUS MEM ONE (10:00)
[2021-12-13] MEDS ORDERED: fentaNYL (PF) 50 MCG/ML 2 ML AMP IV ONE (10:00)
[2021-12-13] MEDS ORDERED: MIDAZOLAM 2 MG/2 ML VIAL IV ONE (10:00)
[2021-12-13 10:08] VITALS: RESP 16
[2021-12-13] MEDS ORDERED: SODIUM CHLORIDE 0.9% 1,000 ML IV SCH (10:15)
[2021-12-13 11:39] VITALS: BP 108/56; PULSE 88
--- NOTE | 2021-12-13 12:07 | ECHOT ---
TRANSESOPHAGEAL ECHOCARDIOGRAM INDICATION: TIA. PROCEDURE NOTE: After obtaining informed consent, transesophageal echocardiogram is performed in left lateral position using an Omniplane probe. Local and IV sedation were obtained. Sedation time was 8 minutes. Color Doppler, 2D, M-mode and spectral analysis has been performed. FINDINGS: 1. There is no intracardiac thrombus within the left atrial appendage, left atrium, right atrium or right ventricle. 2. Left ventricle has normal size and systolic function. 3. Left atrium appears mildly enlarged. 4. Right atrium and right ventricle seen within normal limits. 5. Mitral valve is anatomically normal. There is mild mitral regurgitation noted. 6. Tricuspid valve shows trace tricuspid regurgitation. 7. Aortic valve is a 3-leaflet valve. There is no evidence of aortic stenosis or regurgitation. 8. Interatrial septum: There is no evidence of hpfc-bc-lyvtu shunt by color-flow Doppler or prjrr-dd-[id number] shunt by agitated saline contrast study. CONCLUSIONS: 1. No intracardiac source for thromboembolic CVA on this study. 2. No evidence of yuldp-nw-[id number] shunt across the interatrial septum. MMODL / IJN: [id number] /
== END 2021-12-13 11:43 | disposition home or self-care (01) ==
LOC: CATHCVL 08:22
PROVIDERS: ATTEND Internal Medicine Cardiovascular Disease
DX: I07.1 Rheumatic tricuspid insufficiency (principal); Z20.822 Contact with and (suspected) exposure to COVID-19
CPT/HCPCS: 93312; 93320; 93325; 87635; J2250; J3010

== ENCOUNTER → 2023-03-29 | Outpatient (CLI) | payer MEDICARE, OTHER ==
--- NOTE | 2023-04-01 08:08 | MM ---
Reason for Exam: Screening (asymptomatic). Last screening mammogram was performed 12 month(s) ago. Patient History: Menarche at age 18. First Full-Term at age 24. Left ovary removed at age 67. Right ovary removed at age 67. Hysterectomy at age 67. Postmenopausal. Maternal aunt had breast cancer, age 60. Mother had breast cancer, age 66. Risk Values: Jade 5 year model risk: 3.0%. NCI Lifetime model risk: 8.3%. Prior Study Comparison: 12/30/2019 Bilateral Screening Mammogram, [facility]. 02/22/2021 Bilateral Screening Mammogram, [facility]. 03/28/2022 Bilateral MG 3D screening mammo w/cad, [facility]. Tissue Density: There are scattered fibroglandular densities. Findings: Analyzed By CAD. There is no suspicious group of microcalcifications or new suspicious mass in either breast. Overall Assessment: Negative, BI-RAD 1 Management: Screening Mammogram of both breasts in 1 year. . Patient should continue monthly self-breast exams. A clinical breast exam by your physician is recommended on an annual basis. This exam should not preclude additional follow-up of suspicious palpable abnormalities. Note on Jade scores and lifetime risk: 1. A Jade score greater than 3% is considered moderate risk. If this is the case, consider specialist referral to assess eligibility for a risk reducing agent. 2. If overall lifetime risk for the development of breast cancer is 20% or higher, the patient may qualify for future screening with alternating mammogram and breast MRI. Electronically signed and approved by: Lucio Lopez M.D. Radiologis
== END | disposition home or self-care (01) ==
LOC: RADMAMWWP 10:00
PROVIDERS: ATTEND Obstetrics & Gynecology
DX: Z12.31 Encounter for screening mammogram for malignant neoplasm of breast (principal); Z78.0 Asymptomatic menopausal state; Z80.3 Family history of malignant neoplasm of breast
CPT/HCPCS: 77063; 77067

== ENCOUNTER → 2023-10-24 | Outpatient (CLI) | payer MEDICARE, OTHER ==
--- NOTE | 2023-10-24 13:09 | XR ---
EXAMINATION TYPE: XR chest 2V DATE OF EXAM: 10/24/2023 COMPARISON: 11/25/2021 HISTORY: Shortness of breath TECHNIQUE: Frontal and lateral views of the chest are obtained. FINDINGS: Scattered senescent parenchymal changes noted. Hyperinflation compatible with COPD. No evidence for infiltrate. No evidence for atelectasis. Heart size is stable. Mediastinal structures are stable and grossly unremarkable. No evidence for hilar prominence. Degenerative changes dorsal spine. IMPRESSION: 1. No evidence for acute pulmonary disease.
== END | disposition home or self-care (01) ==
LOC: RADXRMAIN 12:21
PROVIDERS: ATTEND Family Medicine
DX: J18.9 Pneumonia, unspecified organism (principal)
CPT/HCPCS: 71046

== ENCOUNTER → 2023-12-03 | Outpatient (CLI) | payer MEDICARE, OTHER | LOC: CPPFTMAIN 08:23 | PROVIDERS: ATTEND Family Medicine | DX: J44.9 Chronic obstructive pulmonary disease, unspecified (principal) | CPT/HCPCS: 94060; 94726; 94729 ==

== ENCOUNTER → 2024-04-01 | Outpatient (CLI) | payer MEDICARE, OTHER ==
--- NOTE | 2024-04-07 19:51 | MM ---
Reason for Exam: Screening (asymptomatic). Last screening mammogram was performed 12 month(s) ago. Patient History: Menarche at age 18. First Full-Term at age 24. Left ovary removed at age 67. Right ovary removed at age 67. Hysterectomy at age 67. Postmenopausal. Maternal aunt had breast cancer, age 60. Mother had breast cancer, age 66. Risk Values: Jade 5 year model risk: 3.1%. NCI Lifetime model risk: 7.9%. Prior Study Comparison: 02/22/2021 Bilateral Screening Mammogram, [facility]. 03/28/2022 Bilateral MG 3D screening mammo w/cad, [facility]. 03/29/2023 Bilateral MG 3D screening mammo w/cad, [facility]. Tissue Density: There are scattered areas of fibroglandular density. Findings: Analyzed By CAD. There is no suspicious group of microcalcifications or new suspicious mass in either breast. Overall Assessment: Negative, BI-RAD 1 Management: Screening Mammogram of both breasts in 1 year. See note below in regards to patient's increased 5 year Jade score. Patient should continue monthly self-breast exams. A clinical breast exam by your physician is recommended on an annual basis. This exam should not preclude additional follow-up of suspicious palpable abnormalities. Note on Jade scores and lifetime risk: 1. A Jade score greater than 3% is considered moderate risk. If this is the case, consider specialist referral to assess eligibility for a risk reducing agent. 2. If overall lifetime risk for the development of breast cancer is 20% or higher, the patient may qualify for future screening with alternating mammogram and breast MRI. Electronically signed and approved by: Lia Cintron M.D. Radiologist
== END | disposition home or self-care (01) ==
LOC: RADMAMWWP 08:42
PROVIDERS: ATTEND Family Medicine
DX: Z12.31 Encounter for screening mammogram for malignant neoplasm of breast (principal); Z78.0 Asymptomatic menopausal state; Z80.3 Family history of malignant neoplasm of breast
CPT/HCPCS: 77063; 77067

== ENCOUNTER 2025-02-21 12:31 | Inpatient (IN) | payer MEDICARE, OTHER ==
[2025-02-21 12:48] LABS: Glucose,Whole Blood 103 mg/dL (70-110)
[2025-02-21] MEDS: SODIUM CHLORIDE 0.9% 500 ML 500 ML IV STA (12:54)
[2025-02-21 12:57] LABS: Basophils # (A) 0.02 10*3/uL (0.00-0.10); Basophils % (A) 0.4 %; Eosinophils # (A) 0.17 10*3/uL (0.04-0.35); Eosinophils % (A) 3.7 %; HCT 38.6 % (37.2-46.3); HGB 12.8 g/dL (12.0-15.0); Lymphocytes # (A) 1.63 10*3/uL (0.90-5.00); Lymphocytes % (A) 35.7 %; MCHC 33.2 g/dL (32.0-37.0); MCV 90.4 fL (80.0-97.0); Mean Platelet Volume 9.4 fL (9.5-12.2); Neutrophils # (A) 2.23 10*3/uL (1.80-7.70); Platelet Count 236 10*3/uL (140-440); RBC 4.27 10*6/uL (4.10-5.20); RDW 12.3 % (11.5-14.5); WBC 4.56 10*3/uL (4.50-10.00)
[2025-02-21 13:18] LABS: ALT 18 U/L (4-34); AST 28 U/L (14-36); African American GFR (CKD) >90 (>60 ml/min/1.73 sqM); Albumin 4.1 g/dL (3.5-5.0); Alkaline Phosphatase 69 U/L (38-126); Anion Gap 8 mmol/L; Blood Urea Nitrogen 22 mg/dL (7-17); Calcium 9.9 mg/dL (8.4-10.2); Carbon Dioxide 28 mmol/L (22-30); Chloride 104 mmol/L (98-107); Creatine Kinase 56 U/L (30-135); Glucose 98 mg/dL (74-99); Non-African American GFR(CKD) 89 (>60 ml/min/1.73 sqM); Potassium 4.7 mmol/L (3.5-5.1); Sodium 140 mmol/L (137-145); Total Bilirubin 0.7 mg/dL (0.2-1.3); Total Protein 6.7 g/dL (6.3-8.2)
--- NOTE | 2025-02-21 13:20 | ED ---
General Adult HPI - General Chief complaint: Neuro Symptoms/Deficit Stated complaint: right side facial numbness, right hand numb Time Seen by Provider: 02/21/25 12:35 Source: patient, RN notes reviewed, old records reviewed Mode of arrival: ambulatory Limitations: no limitations - History of Present Illness Initial comments: This is a 75-year-old female who presents to the emergency department complaining of having some numbness to the right side of the face and numbness of the fingers of the right hand and a little numbness going up the forearm. Patient does not think she ever lost complete sensation but it felt different to her. Patient states it lasted about 5 to 10 minutes. Patient had no weakness in any time she had no slurred speech at any time and she had no facial droop at any time. Patient states she was told she had a TIA many years ago but has had no symptoms since. Patient is only on aspirin. Patient denies any recent fever chills or cough. Patient currently has no symptoms whatsoever and feels fine. - Related Data Home Medications Medication Instructions Recorded Confirmed Metoprolol Succinate [Toprol XL] 25 mg PO DAILY 10/11/21 02/21/25 Atorvastatin [Lipitor] 10 mg PO DAILY 11/21/21 02/21/25 ALPRAZolam [Xanax] 0.5 mg PO DAILY PRN 12/08/21 02/21/25 Acyclovir [Zovirax] 200 mg PO 5XD PRN 02/21/25 02/21/25 lisinopriL [Zestril] 10 mg PO DAILY 02/21/25 02/21/25 Allergies Allergy/AdvReac Type Severity Reaction Status Date / Time No Known Allergies Allergy Verified 02/21/25 13:28 Review of Systems ROS Statement: Those systems with pertinent positive or pertinent negative responses have been documented in the HPI. ROS Other: All systems not noted in ROS Statement are negative. Past Medical History Past Medical History: Coronary Artery Disease (CAD), Cancer, CVA/TIA, Hypertension Additional Past Medical History / Comment(s): chest pain and "high heart rate" 1 month ago, prolapsed bladder, skin cancer, Monoclonal Gammopathy of Undetermined Significance "MGUS"(follows with oncologist), TIAx2 in Dec.-no residual effects per pt. History of Any Multi-Drug Resistant Organisms: None Reported Past Surgical History: Bladder Surgery, Cholecystectomy, Heart Catheterization, Hernia Repair, Hysterectomy, Orthopedic Surgery, Tonsillectomy, Tubal Ligation Additional Past Surgical History / Comment(s): rt knee arthroscopy, sinus surgery, fibroids removed from uterus, renea cataracts, left eye surgery Past Anesthesia/Blood Transfusion Reactions: No Reported Reaction Past Psychological History: Anxiety Smoking Status: Never smoker Past Alcohol Use History: None Reported Past Drug Use History: None Reported - Past Family History Mother Family Medical History: Cancer General Exam - General Exam Comments Initial Comments: GENERAL: Patient is well-developed and well-nourished. Patient is nontoxic and well- hydrated and is in no acute distress. ENT: Neck is soft and supple. No significant lymphadenopathy is noted. Oropharynx is clear. Moist mucous membranes. Neck has full range of motion without eliciting any pain. EYES: The sclera were anicteric and conjunctiva were pink and moist. Extraocular movements were intact and pupils were equal round and reactive to light. Eyelids were unremarkable. PULMONARY: Unlabored respirations. Good breath sounds bilaterally. No audible rales rhonchi or wheezing was noted. CARDIOVASCULAR: There is a regular rate and rhythm without any murmurs gallops or rubs. ABDOMEN: Soft and nontender with normal bowel sounds. SKIN: Skin is clear with no lesions or rashes and otherwise unremarkable. NEUROLOGIC: Patient is alert and oriented x3. Cranial nerves II through XII are grossly intact. Motor and sensory are also intact. Normal speech, volume and content. Symmetrical smile. His NIH is 0 MUSCULOSKELETAL: Normal extremities with adequate strength and full range of motion. No lower extremity swelling or edema. No calf tenderness. LYMPHATICS: No significant lymphadenopathy is noted PSYCHIATRIC: Normal psychiatric evaluation. Limitations: no limitations Course Vital Signs 02/21/25 02/21/25 02/21/25 12:33 12:55 12:57 Temperature 97.3 F L Pulse Rate 68 66 65 Respiratory 20 18 18 Rate Blood Pressure 171/105 132/85 O2 Sat by Pulse 100 97 97 Oximetry 02/21/25 02/21/25 02/21/25 13:17 14:01 14:02 Temperature Pulse Rate 62 69 61 Respiratory 18 18 18 Rate Blood Pressure 146/85 138/92 140/87 O2 Sat by Pulse 97 97 97 Oximetry 02/21/25 14:32 Temperature Pulse Rate 64 Respiratory 18 Rate Blood Pressure 148/89 O2 Sat by Pulse 97 Oximetry Medical Decision Making - Medical Decision Making EKG is interpreted by myself but EKG is a sinus rhythm at 63 bpm AR was 201 QRS is 85 QT interval is 381 QTc is 389. Patient's EKG shows no ST segment elevation or depression. Was pt. sent in by a medical professional or institution ([facility], CLAIMS CONSULTANT, urgent care, hospital, or [facility]...) When possible be specific @ -No Did you speak to anyone other than the patient for history (EMS, parent, family, police, friend...)? What history was obtained from this source @ -No Did you review nursing and triage notes (agree or disagree)? Why? @ -I reviewed and agree with nursing and triage notes Were old charts reviewed (outside hosp., previous admission, EMS record, old EKG, old radiological studies, urgent care reports/EKG's, [facility] records)? Report findings @ -No old charts were reviewed Differential Diagnosis? @ -Differential CVA Ischemic stroke, hemorrhagic stroke, brain tumor, atypical migraine, Wernicke's encephalopathy, seizure, multiple sclerosis, meningitis, encephalitis, hypoglycemia, Guillain-Kevin, electrolytes disturbance, myasthenia gravis.... This is not meant to be an all-inclusive list EKG interpreted by me (3pts min.). @ -As above X-rays interpreted by me (1pt min.). @ -X-ray shows no acute abnormality CT interpreted by me (1pt min.). @ -CT of the brain shows no acute abnormality. CT of the head and neck angiogram shows no acute abnormality U/S interpreted by me (1pt. min.). @ -None done What testing was considered but not performed or refused? (CT, X-rays, U/S, labs )? Why? @ -None What meds were considered but not given or refused? Why? @ -None Did you discuss the management of the patient with other professionals (professionals i.e. REECE Khan, CLAIMS CONSULTANT, lab, RT, psych nurse, social service agency director, inspector outside steam distribution, teacher, aoc director combat operations officer, case liner)? Give summary @ -I spoke with [facility] they agreed to admit the patient admit the patient wrote admitting Was smoking cessation discussed for >3mins.? @ -No Was critical care preformed (if so, how long)? @ -No Were there social determinants of health that impacted care today? How? (Homelessness, low income, unemployed, alcoholism, drug addiction, transportation, low edu. Level, literacy, decrease access to med. care, longterm, rehab)? @ -No Was there de-escalation of care discussed even if they declined (Discuss DNR or withdrawal of care, Hospice)? DNR status @ -No What co-morbidities impacted this encounter? (DM, HTN, Smoking, COPD, CAD, Cancer, CVA, ARF, Chemo, Hep., AIDS, mental health diagnosis, sleep apnea, morbid obesity)? @ -None Was patient admitted / discharged? Hospital course, mention meds given and route, prescriptions, significant lab abnormalities, going to OR and other pertinent info. @ -Patient's symptoms were completely gone in the emergency department she did have a short episode of some tingling to her right toes but no deficit was appreciated. Patient's CAT scan and CT angiogram were normal. Patient chest x- ray was normal lab work was normal patient will be admitted with consult to neurology Undiagnosed new problem with uncertain prognosis? @ -No Drug Therapy requiring intensive monitoring for toxicity (Heparin, Nitro, Insulin, Cardizem)? @ -No Were any procedures done? @ -No Diagnosis/symptom? @ -TIA Acute, or Chronic, or Acute on Chronic? @ -Acute Uncomplicated (without systemic symptoms) or Complicated (systemic symptoms)? @ -Complicated Side effects of treatment? @ -No Exacerbation, Progression, or Severe Exacerbation? @ -No Poses a threat to life or bodily function? How? (Chest pain, USA, LA, pneumonia, PE, COPD, DKA, ARF, appy, cholecystitis, CVA, Diverticulitis, Homicidal, Suicidal, threat to staff... and all critical care pts) @ -No - Lab Data Result diagrams: 02/21/25 12:48 02/21/25 12:48 Lab Results 02/21/25 02/21/25 02/21/25 Range/Units 12:47 12:48 12:48 WBC 4.56 (4.50-10.00) 10*3/uL RBC 4.27 (4.10-5.20) 10*6/uL Hgb 12.8 (12.0-15.0) g/dL Hct 38.6 (37.2-46.3) % MCV 90.4 (80.0-97.0) fL MCH 30.0 (27.0-32.0) pg MCHC 33.2 (32.0-37.0) g/dL Plt Count 236 (140-440) 10*3/uL MPV 9.4 L (9.5-12.2) fL Immature Gran % (Auto) 0.2 % Neutrophils % 49.0 % Lymphocytes % 35.7 % Monocytes % 11.0 % Eosinophils % 3.7 % Basophils % 0.4 % Immature Gran # 0.01 (0.00-0.04) 10*3/uL Neutrophils # 2.23 (1.80-7.70) 10*3/uL Lymphocytes # 1.63 (0.90-5.00) 10*3/uL Monocytes # 0.50 (0.20-1.00) 10*3/uL Eosinophils # 0.17 (0.04-0.35) 10*3/uL Basophils # 0.02 (0.00-0.10) 10*3/uL PT 11.4 (10.0-12.5) sec INR 1.0 (<1.2) APTT 24.7 (22.0-30.0) sec Sodium (137-145) mmol/L Potassium (3.5-5.1) mmol/L Chloride (98-107) mmol/L Carbon Dioxide (22-30) mmol/L Anion Gap mmol/L BUN (7-17) mg/dL Creatinine (0.52-1.04) mg/dL Est GFR (CKD-EPI)AfAm (>60 ml/min/1.73 sqM) Est GFR (CKD-EPI)NonAf (>60 ml/min/1.73 sqM) Glucose (74-99) mg/dL POC Glucose (mg/dL) 103 (70-110) mg/dL POC Glu Head Golf Coach ID [facility] Calcium (8.4-10.2) mg/dL Total Bilirubin (0.2-1.3) mg/dL AST (14-36) U/L ALT (4-34) U/L Alkaline Phosphatase (38-126) U/L Creatine Kinase (30-135) U/L Troponin I (0.000-0.034) ng/mL Total Protein (6.3-8.2) g/dL Albumin (3.5-5.0) g/dL 02/21/25 02/21/25 Range/Units 12:48 12:48 WBC (4.50-10.00) 10*3/uL RBC (4.10-5.20) 10*6/uL Hgb (12.0-15.0) g/dL Hct (37.2-46.3) % MCV (80.0-97.0) fL MCH (27.0-32.0) pg MCHC (32.0-37.0) g/dL Plt Count (140-440) 10*3/uL MPV (9.5-12.2) fL Immature Gran % (Auto) % Neutrophils % % Lymphocytes % % Monocytes % % Eosinophils % % Basophils % % Immature Gran # (0.00-0.04) 10*3/uL Neutrophils # (1.80-7.70) 10*3/uL Lymphocytes # (0.90-5.00) 10*3/uL Monocytes # (0.20-1.00) 10*3/uL Eosinophils # (0.04-0.35) 10*3/uL Basophils # (0.00-0.10) 10*3/uL PT (10.0-12.5) sec INR (<1.2) APTT (22.0-30.0) sec Sodium 140 (137-145) mmol/L Potassium 4.7 (3.5-5.1) mmol/L Chloride 104 (98-107) mmol/L Carbon Dioxide 28 (22-30) mmol/L Anion Gap 8 mmol/L BUN 22 H (7-17) mg/dL Creatinine 0.65 (0.52-1.04) mg/dL Est GFR (CKD-EPI)AfAm >90 (>60 ml/min/1.73 sqM) Est GFR (CKD-EPI)NonAf 89 (>60 ml/min/1.73 sqM) Glucose 98 (74-99) mg/dL POC Glucose (mg/dL) (70-110) mg/dL POC Glu Head Golf Coach ID Calcium 9.9 (8.4-10.2) mg/dL Total Bilirubin 0.7 (0.2-1.3) mg/dL AST 28 (14-36) U/L ALT 18 (4-34) U/L Alkaline Phosphatase 69 (38-126) U/L Creatine Kinase 56 (30-135) U/L Troponin I <0.012 (0.000-0.034) ng/mL Total Protein 6.7 (6.3-8.2) g/dL Albumin 4.1 (3.5-5.0) g/dL Disposition Clinical Impression: Transient cerebral ischemia Disposition: ADMITTED IP TO THIS HOSP Referrals: Gavino Finney MD [Primary Care Provider] - 1-2 days Time of Disposition: 15:47
--- NOTE | 2025-02-21 13:37 | CT ---
EXAMINATION TYPE: CT brain wo con DATE OF EXAM: 02/21/2025 1:21 PM COMPARISON: None. CLINICAL INDICATION: Female, 75 years old with history of Neuro deficit, acute, stroke suspected, TECHNIQUE: CT of the brain is performed utilizing 3 mm thick sections through the posterior fossa and 3 mm thick sections through the remaining calvarium. Study is performed within 24 hours of arrival to the hospital. Contrast used: mL of , (none if empty) CT DLP: mGycm, Automated exposure control for dose reduction was used. FINDINGS: No abnormal hyperdensity is present to suggest an acute intracranial hemorrhage. No mass lesion is evident. No acute infarcts are evident. Ventricles and sulci are appropriate for the patient age. Paranasal sinuses and mastoid air cells within the [id number] are clear. IMPRESSION: 1. No acute intracranial process. Follow up MRI can be performed as clinically indicated. [facility], , 02/21/2025 1:34 PM
--- NOTE | 2025-02-21 13:45 | XR ---
EXAMINATION TYPE: XR chest 2V DATE OF EXAM: 02/21/2025 1:22 PM COMPARISON: 10/24/2023 CLINICAL INDICATION: Female, 75 years old with history of altered mental status, TECHNIQUE: XR chest 2V view(s) obtained. FINDINGS: The heart size is normal. The pulmonary vasculature is normal. The lungs are clear. IMPRESSION: 1. No acute pulmonary process. [facility], , 02/21/2025 1:43 PM
[2025-02-21 13:58] LABS: Partial Thromboplastin Time 24.7 sec (22.0-30.0); Prothrombin Time 11.4 sec (10.0-12.5)
--- NOTE | 2025-02-21 14:12 | CT ---
EXAMINATION TYPE: CT angio head neck DATE OF EXAM: 02/21/2025 1:56 PM COMPARISON: None. CLINICAL INDICATION: Female, 75 years old with history of Neuro deficit, acute, stroke suspected, TECHNIQUE: CTA scan is performed with axial images are obtained, coronal and sagittal reformatted chuyita ges are reviewed. MIP images created on a separate workstation and submitted for review. 3-D reconstr ucted images are created on an independent workstation and reviewed. Source images are reviewed. ELISEO CET criteria was used in interpretation of this exam? Contrast used: mL of , (none if empty) Oral contrast used: (none if empty) CT DLP: 407.8 mGycm, Automated exposure control for dose reduction was used. FINDINGS: Carotid/Vascular Structures: There is a 3 vessel arch. Common carotid arteries bifurcate into internal and external carotid arteries without significant alan w limiting stenosis. Vertebral arteries are codominant. Internal carotid arteries and vertebral arteries are patent to the skull base. Cervical of [place]: Vertebral basilar system appears normal. Posterior cerebral vasculature is unrema rkable. Internal carotid arteries bifurcate normally into A1 and M1 segments. A2 segments are normal. The anterior communicating artery is patent. The right posterior communicating artery is patent. The left posterior communicating artery is patent. IMPRESSION: 1. No flow-limiting stenosis bilateral carotid bifurcations. 2. Normal [place] of [place] [facility], , 02/21/2025 2:09 PM
[2025-02-21] MEDS: ASPIRIN 325 MG TAB PO STA (16:03)
[2025-02-22 09:02] LABS: Chol/HDL Ratio 2.66 Ratio; LDL Cholesterol,Calculated 71.2 mg/dL (0.0-131.0); VLDL Calculation 14.98 mg/dL (5.00-40.00)
[2025-02-22] MEDS: ASPIRIN 325 MG TAB PO SCH (09:14)
[2025-02-22] MEDS: ENOXAPARIN 40 MG/0.4 ML SYRINGE SQ SCH (09:14)
[2025-02-22] MEDS: ATORVASTATIN 10 MG TAB PO SCH (09:14)
[2025-02-22] MEDS: METOPROLOL SUCCINATE (ER) 25 MG TAB.ER.24H PO SCH (09:14)
[2025-02-22] MEDS: lisinopriL 10 MG TAB PO SCH (09:14)
[2025-02-22] MEDS: CLOPIDOGREL 75 MG TAB PO SCH (13:22)
--- NOTE | 2025-02-22 14:14 | P.CNNES ---
History of Present Illness Consult date: 02/22/25 Requesting physician: Hussein Jacobson Reason for Consult: TIA History of Present Illness: Patient is a 75-year-old right-handed female, with previous history of TIA, hypertension, hyperlipidemia, came to the hospital yesterday at 12:31 PM for strokelike symptoms. Patient states that she was walking in the religion, to go outside when she suddenly developed numbness of the right side of her face. Then her right fingers and then right hand became numb. There was no facial droop, slurred speech, any problem with the balance. She talked to her son, who got concerned and took her to the ER. Overall the symptoms lasted for about 10 minutes or so. By the time patient came to the ER, all symptoms have resolved. Patient was not a candidate for TNK because all symptoms have resolved. No LVO. Vital signs on arrival blood pressure 171/105, which came down to 132/85, pulse rate 68 temperature 97.3. Blood test shows normal CBC, PT PTT, normal CMP. Troponin negative. EKG showed sinus rhythm. CT head showed no acute intracranial process. I personally reviewed CT head, agree with the findings. Chest x-ray showed no acute pulmonary process. Patient has history of hypertension, previous history of TIA in 2022 while she was in [place], when she developed numbness of the right arm and facial region, was talking slow but no slurred. Symptoms also were short lasting and all went away. Home medications include aspirin 81 mg, Lipitor 10 mg. Patient states that she used to take aspirin 325 mg daily, but was decreased to 81 mg daily 1 to 2 months ago as recommended by her supervising broker. lisinopril 10 mg, metoprolol 25 mg, Xanax and acyclovir. Patient states she is compliant with her medications. Patient is a non-smoker. Review of Systems All pertinent positive and negative review of systems mentioned HPI, otherwise unremarkable. Past Medical History Past Medical History: Coronary Artery Disease (CAD), Cancer, CVA/TIA, Hypertension Additional Past Medical History / Comment(s): chest pain and "high heart rate" 1 month ago, prolapsed bladder, skin cancer, Monoclonal Gammopathy of Undetermined Significance "MGUS"(follows with oncologist), TIAx2 in Oct.-no residual effects per pt. History of Any Multi-Drug Resistant Organisms: None Reported Past Surgical History: Bladder Surgery, Cholecystectomy, Heart Catheterization, Hernia Repair, Hysterectomy, Orthopedic Surgery, Tonsillectomy, Tubal Ligation Additional Past Surgical History / Comment(s): rt knee arthroscopy, sinus surgery, fibroids removed from uterus, renea cataracts, left eye surgery Past Anesthesia/Blood Transfusion Reactions: No Reported Reaction Past Psychological History: Anxiety Additional Psychological History / Comment(s): anxiety on airplanes Smoking Status: Never smoker Past Alcohol Use History: None Reported Past Drug Use History: None Reported - Past Family History Mother Family Medical History: Cancer Medications and Allergies Home Medications Medication Instructions Recorded Confirmed Type Metoprolol Succinate [Toprol XL] 25 mg PO DAILY 10/11/21 02/21/25 History Atorvastatin [Lipitor] 10 mg PO DAILY 11/21/21 02/21/25 History ALPRAZolam [Xanax] 0.5 mg PO DAILY PRN 12/08/21 02/21/25 History Acyclovir [Zovirax] 200 mg PO 5XD PRN 02/21/25 02/21/25 History lisinopriL [Zestril] 10 mg PO DAILY 02/21/25 02/21/25 History Allergies Allergy/AdvReac Type Severity Reaction Status Date / Time No Known Allergies Allergy Verified 02/21/25 13:28 Physical Examination - Vital Signs Vital Signs: Vital Signs Temp Pulse Pulse Resp BP BP Pulse Ox 02/22/25 07:27 98.4 F 61 16 122/76 98 02/22/25 01:59 98.1 F 60 16 112/70 99 02/21/25 22:08 98.0 F 70 17 175/81 95 02/21/25 20:40 67 18 148/90 96 02/21/25 19:32 76 18 124/64 96 02/21/25 19:00 78 18 125/72 97 02/21/25 18:32 76 18 140/76 97 02/21/25 18:00 58 L 20 124/64 96 02/21/25 17:49 74 18 02/21/25 17:32 74 18 136/86 98 02/21/25 17:02 72 18 98 02/21/25 16:49 70 18 134/76 98 02/21/25 16:02 65 18 02/21/25 16:00 68 18 130/78 97 02/21/25 15:49 66 18 131/85 96 02/21/25 15:32 64 18 139/81 98 02/21/25 15:00 62 18 150/80 98 02/21/25 14:32 64 18 148/89 97 02/21/25 14:02 61 18 140/87 97 02/21/25 14:01 69 18 138/92 97 02/21/25 13:17 62 18 146/85 97 02/21/25 12:57 65 18 132/85 97 02/21/25 12:55 66 18 97 02/21/25 12:33 97.3 F L 68 20 171/105 100 Intake and Output 02/21/25 02/22/25 02/22/25 22:59 06:59 14:59 Other: Voiding Method Toilet # Voids 2 3 Weight 65.771 kg 69 kg Patient is an elderly female, very pleasant, in no acute distress. Patient is alert awake oriented to time place and person. Speech and language functions are normal. Patient can name and repeat very well. No aphasia or dysarthria. Attention, concentration and fund of knowledge is adequate. On cranial nerve examination, pupils are equal, round and reacting to light, visual marcum are full on confrontation, with no neglect on double simultaneous stimulation. Extraocular muscles are intact with no nystagmus. Face is symmetric, tongue protrudes to the midline. Palatal elevation and sensation normal, hearing and shoulder shrug normal, facial sensation normal. On muscle strength testing, there is mild right pronator drift, about 5 degree and the strength is normal in arms and legs distally and proximally. Deep tendon reflexes are symmetric 1+ in the arms and legs. Sensory to touch is equal with no neglect on double simultaneous stimulation. Cerebellar function showed no ataxia for [id number] testing. No dysdiadochokinesia. No ataxia for [id number] testing on either side. Tone and bulk of muscles normal. Gait deferred.. On general examination, there is no carotid bruit or murmur, S1-S2 audible. Chest is clear on consultation. Abdomen is soft nontender. No organomegaly, bowel sounds present. Peripheral pulses are present. No peripheral edema. Results - Laboratory Findings CBC and BMP: 02/21/25 12:48 02/21/25 12:48 Abnormal Lab Findings: Abnormal Labs 02/21/25 02/21/25 12:48 12:48 MPV 9.4 L BUN 22 H Assessment and Plan Assessment: * Probable TIA manifesting with transient right facial and hand numbness. Symptoms resolved in about 10 minutes. Current examination only showing mild right pronator drift. Rule out CVA. * Hypertension * Hyperlipidemia * Previous history of TIA, with no residual deficits Plan: MRI of the brain without contrast, rule out acute CVA 2-D echo with bubble study to rule out PFO CTA head and neck showed: No flow-limiting stenosis bilateral carotid bifurcation. Normal [place] of [place]. Fasting a.m. lipid panel cholesterol 138, LDL 71, HDL 51, triglycerides 74. Continue Lipitor, but we will increase the dose to 20 mg daily. Target LDL less than 70. Hemoglobin A1c Optimize control of blood pressure. Patient has been on aspirin 81 mg daily, compliant. We will add Plavix for now. Neuro checks every 4 hour. Telemetry monitoring rule out any arrhythmia PT, OT, speech therapy DVT prophylaxis: Lovenox 40 mg subcu daily. Neurology will continue to follow. Thank you for the consult.
--- NOTE | 2025-02-22 15:03 | P.HPIM ---
History of Present Illness H&P Date: 02/22/25 History of present illness; Patient is a 75-year-old female with CAD, hypertension, history of TIA, who presents with right-sided numbness. Patient states she had numbness beginning yesterday after leaving temple. Numbness was present on right side of the face, fingers of the right hand and a some numbness going up the forearm which lasted for 10 to 15 minutes. Unsure if she lost complete sensation. Patient had no weakness in any time she had no slurred speech at any time, and she had no faci al droop at any time. Patient states she was told she had a TIA many years ago but has had no symptoms since. Patient is only on aspirin. Patient denies any recent fever chills or cough. Patient currently has no symptoms whatsoever and feels fine. Spoke with the ER physician, patient admission was accepted by internal medicine service for treatment. REVIEW OF SYSTEMS: Pertinent positives and negatives noted in HPI. PHYSICAL EXAMINATION: Vitals reviewed GENERAL: Resting comfortably in bed. EYES: PERRL, no scleral injection or icterus. HENT: Normocephalic, atraumatic, hearing grossly intact, moist mucous membranes NECK: No tracheal deviation, full range of motion. CARDIOVASCULAR: S1 and S2 present. No murmurs, rubs, or gallops. PULMONARY: Chest is clear to auscultation, no wheezing, rhonchi, or crackles. ABDOMEN: Soft, nontender, nondistended. No palpable organomegaly. MUSCULOSKELETAL: No apparent joint swelling and deformities. EXTREMITIES: No apparent cyanosis, clubbing. No pedal edema. NEUROLOGICAL: Alert and oriented x 3. CN II through XII no deficits noted. 5/5 strength upper lower extremities, gait testing deferred. SKIN: No apparent rashes. ER FINDINGS: Labs significant for WBC 4.5, sodium 140, BUN 22, troponin negative, lipid panel is WNL EKG independently interpreted showed sinus rhythm heart rate of 63, QTc 389, no ST segment elevation or depression seen, no T-wave inversions seen. Chest x-ray done independently interpreted showed no acute cardiopulmonary process. CT head independently interpreted showed no acute intracranial process. CTA head and neck done independently interpreted showed no significant stenosis, aneurysm or thrombus in the intracranial circulation. Assessment and Plan: In summary, Patient is a 75-year-old female with CAD, hypertension, history of TIA, who presents with right-sided numbness. # TIA likely, rule out CVA Head CT - no acute process CT angiogram head and neck, or carotid US reviewed - EKGno ST elevations or T wave abnormalities or arrhythmia noted HbA1c ordered - Start Aspirin 325 mg qd, clopedogrel 75 mg qd, and lipitor 40 mg qd for 21 days on d/c - continue home antihypertensive medication - Echocardiogram with bubble study ordered - Fall precautions - consult PT and OT for evaluation - NPO until speech evaluation MRI brain ordered Neurology consulted Chronic Medical Conditions #Hx of TIA #CAD #Hypertension Resume home medication DVT ppx: Subq Lovenox 40 meq daily Code status: Full code F: P.o. E: Replete as needed N: Heart healthy diet A: Ambulatory Anticipated discharge place: Home Anticipated discharge time: [address] Leonardo seen patient with resident, present during exam, and agreed with findings. Dictation was produced using [employer] dictation software. Please excuse any grammatical, word or spelling errors. Past Medical History Past Medical History: Coronary Artery Disease (CAD), Cancer, CVA/TIA, Hypertension Additional Past Medical History / Comment(s): chest pain and "high heart rate" 1 month ago, prolapsed bladder, skin cancer, Monoclonal Gammopathy of Undetermined Significance "MGUS"(follows with oncologist), TIAx2 in Oct.-no residual effects per pt. History of Any Multi-Drug Resistant Organisms: None Reported Past Surgical History: Bladder Surgery, Cholecystectomy, Heart Catheterization, Hernia Repair, Hysterectomy, Orthopedic Surgery, Tonsillectomy, Tubal Ligation Additional Past Surgical History / Comment(s): rt knee arthroscopy, sinus surgery, fibroids removed from uterus, renea cataracts, left eye surgery Past Anesthesia/Blood Transfusion Reactions: No Reported Reaction Past Psychological History: Anxiety Additional Psychological History / Comment(s): anxiety on airplanes Smoking Status: Never smoker Past Alcohol Use History: None Reported Past Drug Use History: None Reported - Past Family History Mother Family Medical History: Cancer Medications and Allergies Home Medications Medication Instructions Recorded Confirmed Type Metoprolol Succinate [Toprol XL] 25 mg PO DAILY 10/11/21 02/21/25 History Atorvastatin [Lipitor] 10 mg PO DAILY 11/21/21 02/21/25 History ALPRAZolam [Xanax] 0.5 mg PO DAILY PRN 12/08/21 02/21/25 History Acyclovir [Zovirax] 200 mg PO 5XD PRN 02/21/25 02/21/25 History lisinopriL [Zestril] 10 mg PO DAILY 02/21/25 02/21/25 History Allergies Allergy/AdvReac Type Severity Reaction Status Date / Time No Known Allergies Allergy Verified 02/21/25 13:28 Physical Exam Vitals: Vital Signs Temp Pulse Pulse Resp BP BP Pulse Ox 02/22/25 07:27 98.4 F 61 16 122/76 98 02/22/25 01:59 98.1 F 60 16 112/70 99 02/21/25 22:08 98.0 F 70 17 175/81 95 02/21/25 20:40 67 18 148/90 96 02/21/25 19:32 76 18 124/64 96 02/21/25 19:00 78 18 125/72 97 02/21/25 18:32 76 18 140/76 97 02/21/25 18:00 58 L 20 124/64 96 02/21/25 17:49 74 18 02/21/25 17:32 74 18 136/86 98 02/21/25 17:02 72 18 98 02/21/25 16:49 70 18 134/76 98 02/21/25 16:02 65 18 02/21/25 16:00 68 18 130/78 97 02/21/25 15:49 66 18 131/85 96 02/21/25 15:32 64 18 139/81 98 02/21/25 15:00 62 18 150/80 98 02/21/25 14:32 64 18 148/89 97 02/21/25 14:02 61 18 140/87 97 02/21/25 14:01 69 18 138/92 97 02/21/25 13:17 62 18 146/85 97 02/21/25 12:57 65 18 132/85 97 02/21/25 12:55 66 18 97 02/21/25 12:33 97.3 F L 68 20 171/105 100 Intake and Output 02/21/25 02/22/25 02/22/25 22:59 06:59 14:59 Other: # Voids 2 3 Weight 65.771 kg 69 kg Results CBC & Chem 7: 02/21/25 12:48 04/13/25 12:48 Labs: Abnormal Lab Results - Last 24 Hours (Table) 02/21/25 02/21/25 Range/Units 12:48 12:48 MPV 9.4 L (9.5-12.2) fL BUN 22 H (7-17) mg/dL Thrombosis Risk Factor Assmnt - Choose All That Apply Any of the Below Risk Factors Present?: Yes Other Risk Factors: Yes Each Risk Factor Represents 2 Points: Age 61-74 years Other congenital or acquired thrombophilia - If yes, enter type in comment: No Thrombosis Risk Factor Assessment Total Risk Factor Score: 2 Thrombosis Risk Factor Assessment Level: Low Risk
[2025-02-23] MEDS: ATORVASTATIN 40 MG TAB PO SCH (08:29)
--- NOTE | 2025-02-23 10:26 | CA ---
Transthoracic Echo Report Name: Ernestine Torres Age: 75 Gender: F : 1950 Exam Date: 02/22/2025 15:39 Exam Location: [facility] Ht (in): 67 Wt (lb): 152 Ordering Physician: Kim Deng MD Attending/Referring Phys: Night Monitor Marlin Dooley RDCS Procedure CPT: Indications: tia Cardiac Hx: Technical Quality: Good Contrast 1: Total Dose (mL): Contrast 2: Total Dose (mL): MEASUREMENTS (Male / Female) Normal Values 2D ECHO LV Diastolic Diameter PLAX 4.3 cm 4.2 - 5.9 / 3.9 - 5.3 cm LV Systolic Diameter PLAX 2.8 cm IVS Diastolic Thickness 1.0 cm 0.6 - 1.0 / 0.6 - 0.9 cm LVPW Diastolic Thickness 1.2 cm 0.6 - 1.0 / 0.6 - 0.9 cm LV Relative Wall Thickness 0.5 RV Internal Dim ED PLAX 2.3 cm LA Systolic Diameter LX 3.3 cm 3.0 - 4.0 / 2.7 - 3.8 cm LV Diastolic Volume MOD BP 58.6 cm??? 67 - 155 / 56 - 104 cm??? LV Systolic Volume MOD BP 25.1 cm??? 22 - 58 / 19 - 49 cm??? LV Ejection Fraction MOD BP 57.1 % >= 55 % LV Cardiac Index MOD BP 1072.0 cm???/min???m??? LV Diastolic Volume MOD 4C 77.8 cm??? LV Systolic Volume MOD 4C 27.3 cm??? LV Ejection Fraction MOD 4C 64.8 % LV Cardiac Index MOD 4C 1614.3 cm???/min???m??? LV Diastolic Length 4C 6.7 cm LV Systolic Length 4C 5.6 cm LV Diastolic Volume MOD 2C 42.4 cm??? LV Systolic Volume MOD 2C 23.2 cm??? LV Ejection Fraction MOD 2C 45.2 % LV Cardiac Index MOD 2C 613.2 cm???/min???m??? LV Diastolic Length 2C 6.4 cm LV Systolic Length 2C 5.5 cm LA Volume 33.0 cm??? 18 - 58 / 22 - 52 cm??? LA Volume Index 18.2 cm???/m??? 16 - 28 cm???/m??? M-MODE Aortic Root Diameter MM 3.1 cm AV Cusp Separation MM 1.7 cm DOPPLER AI Peak Velocity 208.3 cm/s AI Peak Gradient 17.4 mmHg AI Pressure Half Time 954.4 ms MV Area PHT 1.6 cm??? Mitral E Point Velocity 38.6 cm/s Mitral A Point Velocity 65.6 cm/s Mitral E to A Ratio 0.6 MV Deceleration Time 482.2 ms TR Peak Velocity 196.7 cm/s TR Peak Gradient 15.5 mmHg FINDINGS Left Ventricle Left ventricular ejection fraction is estimated at 55-60 %. Mildly increased posterior wall thickness. Normal left ventricular systolic function with no obvious regional wall motion abnormalities. Left ventricular cavity size normal. Right Ventricle Normal right ventricular size and function. Right ventricular systolic pressure within normal limits. Right Atrium Normal right atrial size. Left Atrium Normal left atrial size. Mitral Valve Structurally normal mitral valve. Trace mitral regurgitation. No mitral stenosis. Aortic Valve Trileaflet aortic valve. Trace to mild aortic regurgitation. No aortic stenosis. Tricuspid Valve Structurally normal tricuspid valve. Mild tricuspid regurgitation. No tricuspid stenosis. Pulmonic Valve Structurally normal pulmonic valve. Trace pulmonic regurgitation. No pulmonic stenosis. Pericardium No pericardial or pleural effusion. Aorta Normal size aortic root and proximal ascending aorta. CONCLUSIONS LVEF 55% Mild concentric LVH No obvious regional wall motion abnormality Normal RV size and systolic function No significant valvular dysfunction No prior echo to compare with in database Previewed by: Dr Josue Tiwari (Electronically Signed) Final Date: 23 February 2025 10:25
[2025-02-23] MEDS: ALPRAZolam 0.5 MG TAB PO PRN (11:31)
--- NOTE | 2025-02-23 13:06 | MR ---
INDICATION: Patient age:Female; 75 years old; Reason for study: Stroke/TIA; PHH. COMPARISON: CT brain 02/21/2025, CTA head and neck 02/21/2025. TECHNIQUE: Multi planar, multi sequence imaging was performed through the brain without administratio n of intravenous contrast. FINDINGS: The noble-white junctions, ventricular system, basal cisterns appear unremarkable. Age-appropriate cer ebral volume loss. Diffusion-weighted imaging shows no evidence of restricted diffusion to suggest ac unga/subacute infarct. Intracranial arterial flow voids are maintained. Midline structures show no abn ormality. Tiny foci of high T2/FLAIR signal intensity are seen within the supratentorial periventricu lar and subcortical white matter. The susceptibility weighted images do not reveal any evidence for m icro-hemorrhage. The bone marrow signal is within normal limits. The paranasal sinuses are unremarkable. Bilateral ap hakia. Trace left mastoid effusion. IMPRESSION: 1. No evidence of intracranial mass or acute/subacute infarct. 2. Nonspecific minimal white matter changes, likely related to small vessel ischemic disease. [facility], , 02/23/2025 1:03 PM
--- NOTE | 2025-02-23 13:41 | P.PN ---
Subjective Progress Note Date: 02/23/25 Patient was seen for a follow-up. Patient denies any new neurological symptoms. She feels fine. Patient having her lunch. Objective - Vital Signs Vital signs: Vital Signs Temp 98.2 F 02/23/25 07:00 Pulse 66 02/23/25 08:30 Resp 17 02/23/25 07:00 BP 119/77 02/23/25 07:00 Pulse Ox 98 02/23/25 07:00 FiO2 Intake & Output 02/22/25 02/23/25 02/23/25 18:59 06:59 18:59 Intake Total 826 346 Balance 826 346 Weight 68.4 kg Intake: Oral 826 346 Other: Voiding Method Toilet Toilet # Voids 3 3 # Bowel Movements 2 - Exam Mental status, speech and language functions are normal. Muscle strength is normal. No ataxia. - Labs CBC & Chem 7: 02/21/25 12:48 02/21/25 12:48 Assessment and Plan Assessment: * Probable TIA manifesting with transient right facial and hand numbness. Symptoms resolved in about 10 minutes. No evidence of an acute stroke on MRI. * Hypertension * Hyperlipidemia * Previous history of TIA, with no residual deficits Plan: Patient's symptoms have resolved. MRI of the brain revealed no evidence of intracranial mass or acute/subacute infarct. Nonspecific minimal white matter changes, likely related to small vessel ischemic disease. 2D echo revealed normal LVEF 55 to 60%. Mildly increased posterior wall thickness. No obvious regional wall motion abnormalities. Normal left and right atrial size. No significant valvular abnormalities. Patient had a SURAJ on 12/13/2021, which revealed no intracardiac source of thro mboembolic CVA. No evidence of [id number]-[id number] shunt across the interatrial septum. Patient had event monitoring on 09/14/[address] Corbin, which revealed nonsustained runs of atrial tachycardia, short and long. Some episodes of paroxysmal atrial fibrillation/irregular PAT, nonsustained more with RVR. Patient's telemetry monitoring has been normal. Recommend 30-day event monitoring to rule out paroxysmal atrial fibrillation. Patient to follow-up charly Corbin in his office thereafter. CTA head and neck showed: No flow-limiting stenosis bilateral carotid bifurcation. Normal squaxin of [place]. Fasting a.m. lipid panel cholesterol 138, LDL 71, HDL 51, triglycerides 74. Continue Lipitor, but we will increase the dose to 20 mg daily. Target LDL less than 70. Hemoglobin A1c 6.0. Optimize control of blood pressure. Continue aspirin 81 mg and Plavix 75 mg daily for 30 days, then maintain on single agent. Will defer to cardiology for aspirin versus Plavix to be continued. Neurologically clear for discharge.
--- NOTE | 2025-02-23 15:02 | P.DS ---
Providers Date of admission: 02/21/25 15:50 Expected date of discharge: 02/23/25 Attending physician: Arlette Menjivar Consults: 02/21/25 15:50 Consult Physician Routine Consulting Provider: Kim Deng Consult Reason/Comments: TIA Do you want consulting provider notified?: Yes Primary care physician: Gavino Finney Hospital Course: Discharge diagnoses; # TIA Chronic Medical Conditions #Hx of TIA #CAD #Hypertension Hospital course; History of present illness; Patient is a 75-year-old female with CAD, hypertension, history of TIA, who presents with right-sided numbness. Patient states she had numbness beginning yesterday after leaving [employer]. Numbness was present on right side of the face, fingers of the right hand and a some numbness going up the forearm which lasted for 10 to 15 minutes. Unsure if she lost complete sensation. Patient had no weakness in any time she had no slurred speech at any time, and she had no facial droop at any time. Patient states she was told she had a TIA many years ago but has had no symptoms since. Patient is only on aspirin. Patient denies any recent fever chills or cough. Patient currently has no symptoms whatsoever and feels fine. CT head independently interpreted showed no acute intracranial process. CTA head and neck done independently interpreted showed no significant stenosis, aneurysm or thrombus in the intracranial circulation. During hospital stay patient assessed and treated for TIA. Symptoms resolved at this time. She was seen by neurology. MRI of the brain revealed no evidence of intracranial mass or subacute/acute infarct nonspecific minimal white matter changes, likely related to small vessel ischemic disease. 2D echo revealed LVEF 55 to 60%. Patient is discharged to home in stable condition. She is to continue aspirin 81 mg a day, Plavix 75 mg a day daily for 30 days then changed to single agent. Will defer to cardiology for aspirin versus Plavix. Increase dose of Lipitor to 40 mg daily. She is to follow-up with cardiology and her PCP. It is recommended to follow-up with cardiology for 30-day event monitor to rule out paroxysmal A- fib. PHYSICAL EXAMINATION: Vitals reviewed GENERAL: Resting comfortably in bed. EYES: PERRL, no scleral injection or icterus. NECK: No tracheal deviation, full range of motion. CARDIOVASCULAR: S1 and S2 present. No murmurs, rubs, or gallops. PULMONARY: Chest is clear to auscultation, no wheezing, rhonchi, or crackles. ABDOMEN: Soft, nontender, nondistended. No palpable organomegaly. EXTREMITIES: No apparent cyanosis, clubbing. No pedal edema. NEUROLOGICAL: Alert and oriented x 3. CN II through XII no deficits noted. 5/5 strength upper lower extremities, gait testing deferred. SKIN: No apparent rashes. Dr. Leonardo seen patient with resident, present during exam, and agreed with findings. Dictation was produced using [employer] dictation software. please excuse any grammatical, word or spelling errors. Patient Condition at Discharge: Stable Plan - Discharge Summary New Discharge Prescriptions: New Aspirin [Adult Low Dose Aspirin EC] 81 mg PO DAILY #30 tab Atorvastatin [Lipitor] 40 mg PO DAILY #30 tab Clopidogrel [Plavix] 75 mg PO DAILY #30 tab Continue Metoprolol Succinate [Toprol XL] 25 mg PO DAILY ALPRAZolam [Xanax] 0.5 mg PO DAILY PRN PRN Reason: Anxiety Acyclovir [Zovirax] 200 mg PO 5XD PRN PRN Reason: flare ups lisinopriL [Zestril] 10 mg PO DAILY Discontinued Atorvastatin [Lipitor] 10 mg PO DAILY Discharge Medication List Metoprolol Succinate [Toprol XL] 25 mg PO DAILY 10/11/21 [History] ALPRAZolam [Xanax] 0.5 mg PO DAILY PRN 12/08/21 [History] Acyclovir [Zovirax] 200 mg PO 5XD PRN 02/21/25 [History] lisinopriL [Zestril] 10 mg PO DAILY 02/21/25 [History] Aspirin [Adult Low Dose Aspirin EC] 81 mg PO DAILY #30 tab 02/23/25 [Rx] Atorvastatin [Lipitor] 40 mg PO DAILY #30 tab 02/23/25 [Rx] Clopidogrel [Plavix] 75 mg PO DAILY #30 tab 02/23/25 [Rx] Follow up Appointment(s)/Referral(s): Gavino Finney MD [Primary Care Provider] - 1-2 days Jeremy Corbin MD [STAFF PHYSICIAN] - 1 Week Patient Instructions/Handouts: Transient Ischemic Attack (DC) Activity/Diet/Wound Care/Special Instructions: Begin new medication. Follow-up with PCP. Recommend follow-up with cardiology Dr. Corbin for 30-day event monitor to rule out paroxysmal A-fib. Discharge Disposition: HOME SELF-CARE
[2025-02-23 15:18] VITALS: BP 104/64; PULSE 67; RESP 18; TEMP 97.5
== END 2025-02-23 15:50 | disposition home or self-care (01) | DRG 69 ==
LOC: EC 12:31 → 3SCARD 15:50 → 6NMEDSUR 19:51
PROVIDERS: ADMIT Hospitalist; ATTEND Hospitalist
DX: G45.9 Transient cerebral ischemic attack, unspecified (principal); D47.2 Monoclonal gammopathy; I10 Essential (primary) hypertension; E78.5 Hyperlipidemia, unspecified; I25.10 Atherosclerotic heart disease of native coronary artery without angina pectoris; Z79.02 Long term (current) use of antithrombotics/antiplatelets; Z79.82 Long term (current) use of aspirin; Z79.899 Other long term (current) drug therapy; Z86.73 Personal history of transient ischemic attack (TIA), and cerebral infarction without residual deficits; Z85.828 Personal history of other malignant neoplasm of skin; Z90.710 Acquired absence of both cervix and uterus
CPT/HCPCS: 36415; 70450; 70496; 70498; 70551; 71046; 80053; 80061; 82550; 83036; 84484; 85025; 85610; 85730; 93005; 93270; 93306; 96360; 99285

== ENCOUNTER → 2025-05-13 | Outpatient (CLI) | payer MEDICARE, OTHER ==
--- NOTE | 2025-05-13 16:26 | MM ---
Reason for Exam: Screening (asymptomatic). Last mammogram was performed 1 year(s) and 2 month(s) ago. Patient History: Menarche at age 18. First Full-Term at age 24. Left ovary removed at age 67. Right ovary removed at age 67. Hysterectomy at age 67. Postmenopausal. Maternal aunt had breast cancer, age 60. Mother had breast cancer, age 66. Risk Values: Jade 5 year model risk: 3.1%. NCI Lifetime model risk: 7.5%. Prior Study Comparison: 03/28/2022 Bilateral MG 3D screening mammo w/cad, [facility]. 03/29/2023 Bilateral MG 3D screening mammo w/cad, [facility]. 04/01/2024 Bilateral MG 3D screening mammo w/cad, [facility]. Tissue Density: There are scattered areas of fibroglandular density. Findings: Analyzed By CAD. Faint benign vascular calcifications on either side. There is no suspicious group of microcalcifications or new suspicious mass in either breast. Overall Assessment: Benign, BI-RAD 2 Management: Screening Mammogram of both breasts in 1 year. See note below in regards to the patient's increased 5 year Jade score. Patient should continue monthly self-breast exams. A clinical breast exam by your physician is recommended on an annual basis. This exam should not preclude additional follow-up of suspicious palpable abnormalities. Note on Jade scores and lifetime risk: 1. A Jade score greater than 3% is considered moderate risk. If this is the case, consider specialist referral to assess eligibility for a risk reducing agent. 2. If overall lifetime risk for the development of breast cancer is 20% or higher, the patient may qualify for future screening with alternating mammogram and breast MRI. [facility], , 05/13/2025 4:23 PM. Electronically signed and approved by: Lia Cintron M.D. Radiologist
== END | disposition home or self-care (01) ==
LOC: RADMAMWWP 14:30
PROVIDERS: ATTEND Family Medicine
DX: Z12.31 Encounter for screening mammogram for malignant neoplasm of breast (principal); R92.323 Mammographic fibroglandular density, bilateral breasts; Z78.0 Asymptomatic menopausal state; Z80.3 Family history of malignant neoplasm of breast
CPT/HCPCS: 77063; 77067

== ENCOUNTER → 2025-06-03 | Outpatient (CLI) | payer MEDICARE, OTHER ==
--- NOTE | 2025-06-03 12:48 | BD ---
EXAMINATION TYPE: Axial Bone Density DATE OF EXAM: 06/03/2025 CLINICAL HISTORY: 75 years old Female. ICD-10 CODE: M85.80 OTH DISRD OF BONE DENSITY AND STRUCTURE, UNM85.80 OTH , Additional History: Height: 66 Weight: 153 FRAX RISK QUESTIONS: Family History (Parent hip fracture): yes Glucocorticoids (More than 3mos): yes, for asthma and injury (Ex: prednisone, prednisolone, methylprednisolone, dexamethasone, and hydrocortisone). History of Fracture in Adulthood: yes 3. Menopause before 45: no 52 RISK FACTORS HISTORY OF: hx of right foot fracture MEDICATIONS: statin, calcium, vit d, bp meds EXAM MEASUREMENTS: Bone mineral densitometry was performed using the [employer] System. Bone mineral density as measured about the Lumbar spine is: ----- L1-L4(G/cm2): 1.103 T Score Values are as follows: ----- L1: -1.3 ----- L2: -1.5 ----- L3: -0.4 ----- L4: 0.3 ----- L1-L4: -0.6 Z Score Values are as follows: ----- L1: 0.2 ----- L2: 0.1 ----- L3: 1.1 ----- L4: 1.8 ----- L1-L4: 0.9 Bone mineral density has: Increased 2.6% since study of: 03.28.2022 Bone mineral density about the R hip (g/cm2): 0.941 Bone mineral density about the L hip (g/cm2): 0.883 T Score values are as follows: -----R Neck: -0.5 -----L Neck: -0.9 -----R Total: -0.5 -----L Total: -1.0 Z Score values are as follows: -----R Neck: 1.2 -----L Neck: -0.2 -----R Total: 1.0 -----L Total: 0.5 Bone mineral density has: Increased 0.9% since study of: 03.28.2022 FRAX%s: The graph provided illustrates a 44.3% chance for a major osteoporotic fx and a 23.2% chance for the hips probability for fx in 10 years time. IMPRESSION: Osteopenia (T Score between -2.5 and -1). There is slightly increased risk of fracture and the patient may be considered for treatment. Re-Screen 2-5 years. NOTE: T-SCORE=SD OF THE YOUNG ADULT MEAN. [facility], , 06/03/2025 12:46 PM
== END | disposition home or self-care (01) ==
LOC: RADBDWWP 08:51
PROVIDERS: ATTEND Family Medicine
DX: M85.89 Other specified disorders of bone density and structure, multiple sites (principal)
CPT/HCPCS: 77080

== ENCOUNTER → 2025-06-09 | Outpatient (CLI) | payer MEDICARE, OTHER ==
--- NOTE | 2025-06-09 15:13 | US ---
EXAMINATION TYPE: US kidneys/renal and bladder DATE OF EXAM: 06/09/2025 COMPARISON: CT(12/06/2017) CLINICAL INDICATION: Female, 75 years old with history of N28.9 DISORDER OF KIDNEY AND URETER; TECHNIQUE: Grayscale imaging of the bilateral kidneys and urinary bladder: FINDINGS: EXAM MEASUREMENTS: Right Kidney: 9.3x3.5x4.4 cm Left Kidney: 10.9x5.2x4.6 cm LIMITED EXAM DUE TO OVERLYING GAS/BOWEL Right Kidney: Multiple Calcifications seen ?echogenic foci seen: 0.5cm ?possible mildly dilated renal pelvis Left Kidney: Limited views, wnl as best seen Bladder: wnl Bilateral Jets seen: Yes IMPRESSION: 1. Right-sided nephrolithiasis with possible mild dilated renal pelvis. [facility], , 06/09/2025 3:10 PM
== END | disposition home or self-care (01) ==
LOC: RADUSWWP 14:32
PROVIDERS: ATTEND Nurse Practitioner
DX: N20.0 Calculus of kidney (principal)
CPT/HCPCS: 76770